=== PATIENT | female | born 1980 | race Caucasian/White ===

== ENCOUNTER 2019-10-07 01:33 | Inpatient (IN) | payer SELFPAY ==
[2019-10-07] VITALS (7 sets, daily range): BP systolic 103–143; BP diastolic 66–99; PULSE 80–99; RESP 14–20; TEMP 36.3–37.2; O2SAT 94–97; BMI 24.5
--- NOTE | 2019-10-07 01:42 | ED_ITS ---
HPI - Psych General: Chief Complaint: Psychiatric Symptoms Stated Complaint: SI Source: patient and EMS Mode of arrival: EMS Limitations: no limitations History of Present Illness: HPI Narrative: 37-year-old female states she has been having suicidal thoughts over the last day. She has no specific plan. States she has been very sad. Denies any worsening or improving factors. complaint: suicidal ideation Onset (ago): hour(s) Duration: constant History of same: Yes Relieving factors: none Exacerbating factors: none Associated psychiatric symptoms: depression Associated symptoms: Reports depression and suicidal ideation Treatments prior to arrival: none Review of Systems Const: Denies: fever or chills Eyes: Denies: change in vision ENMT: Denies: throat pain or mouth pain Card: Denies: chest pain Resp: Denies: shortness of breath GI: Denies: abdominal pain, nausea, vomiting or diarrhea : Denies: difficulty urinating Musc: Denies: back pain or joint pain Skin/Breast: Denies: rash Neuro: Denies: headache or behavioral changes Psych: Reports: depression and suicidal ideation Endo: Denies: excessive urination Riki/Lymph: Denies: easy bruising All/Imm: Denies: hives PFSH ED PFSH: Statuses (acute, chronic, etc) shown below reflect problem list status as previously entered and may not be historically accurate Social History (Updated 10/07/19 @ 01:45 by Barbara Colon MD) Smoking and tobacco status: never smoked Substance/Drug Use: never Physical Exam Const: COMMON NORMALS: no apparent distress, oriented x3 and healthy appearing HENMT: COMMON NORMALS: normocephalic and external nose normal HEAD & SCALP: normocephalic NOSE: external nose normal Eye: COMMON NORMALS: PERRL PUPIL: Yes PERRL Neck/C-Spine: COMMON NORMALS: full ROM and no lymphadenopathy Chest: COMMONS NORMALS: inspection of chest normal Resp: COMMON NORMALS: normal respiratory effort, no use of accessory muscles and clear to auscultation bilaterally AUSCULTATION: clear to auscultation bilaterally Cardio: COMMON NORMALS: regular rate and regular rhythm RATE: regular rate RHYTHM: regular rhythm GI: COMMON NORMALS: normal to inspection, nondistended, normoactive bowel sounds, soft to palpation, non-tender and no masses PALPATION: Yes soft Back/Pelvis: THORACIC SPINE/UPPER BACK: Yes normal to inspection Extremity: COMMON NORMALS: normal to inspection, full ROM and normal capillary refill Neuro: COMMON NORMALS: oriented x3 Psych: COMMON NORMALS: mental status grossly normal and cooperative Skin: COMMON NORMALS: no rashes or lesions noted GENERAL SKIN EXAM: no rashes or lesions noted MDM - Psych MDM Narrative: Medical decision making narrative: Patient presents here with suicidal ideation. Patient placed under a 96-hour hold I spoke to Dr. Pineda and will admit. Patient is medically cleared. Lab Data: Labs: Lab Results 10/07/19 10/07/19 10/07/19 Range/Units 01:49 01:49 01:56 WBC 9.0 (4.0-10.0) 10^3/ uL RBC 5.46 H (4.1-5.3) 10^6/u L Hgb 13.9 (11.5-15.3) g/dL Hct 43.6 (37.0-47.0) % MCV 79.9 L (81-99) fL MCH 25.5 L (28.0-34.0) pg MCHC 31.9 (30.0-36.0) g/dL RDW 15.1 (12.1-15.1) % Plt Count 273 (130-400) 10^3/c mm MPV 10.2 (7.4-10.4) fL Neut % (Auto) 54.4 % Lymph % (Auto) 33.1 % [place] % (Auto) 11.1 % Eos % (Auto) 0.9 % Baso % (Auto) 0.3 % Neut # (Auto) 4.9 (1.8-7.7) 10^3/u L Lymph # (Auto) 3.0 (0.8-4.8) 10^3/u L [place] # (Auto) 1.0 H (0.2-0.9) 10^3/u L Eos # (Auto) 0.1 (0.0-0.8) 10^3/u L Baso # (Auto) 0.0 (0.0-0.1) 10^3/u L Nucleated RBC % (a uto) 0 % Nucleated RBCs # 0.0 /100WBC Sodium (136-145) mmol/L Potassium (3.5-5.1) mmol/L Chloride (98-107) mmol/L Carbon Dioxide (22-29) mmol/L Anion Gap (5-19) BUN (6-20) mg/dL Creatinine (0.5-0.9) mg/dL GFR Calculation (90-130) mL/min Glucose (74-109) mg/dL Calcium (8.6-10.0) mg/Dl Total Bilirubin (0.15-1.2) mg/dL AST (0-32) U/L ALT (0-33) U/L Alkaline Phosphata se (35-105) IU/L Total Protein (6.6-8.7) g/dL Albumin (3.5-5.2) g/dL Globulin (1.3-4.6) g/dL HCG, Qual Negative (Negative) Salicylates (3-10) mg/dL Urine Opiates Scre en Negative (Negative) ng/mL Acetaminophen (10-30) ug/mL Ur Barbiturates Sc reen Negative (Negative) ng/mL Ur Phencyclidine S crn Negative (Negative) ng/mL Ur Amphetamines Sc reen Negative (Negative) ng/mL U Benzodiazepines Scrn Negative (Negative) ng/mL Urine Cocaine Scre en Negative (Negative) ng/mL U Marijuana (THC) Screen Negative (Negative) ng/mL Ethyl Alcohol (0-10) mg/dL 10/07/19 Range/Units 01:56 WBC (4.0-10.0) 10^3/ uL RBC (4.1-5.3) 10^6/u L Hgb (11.5-15.3) g/dL Hct (37.0-47.0) % MCV (81-99) fL MCH (28.0-34.0) pg MCHC (30.0-36.0) g/dL RDW (12.1-15.1) % Plt Count (130-400) 10^3/c mm MPV (7.4-10.4) fL Neut % (Auto) % Lymph % (Auto) % [place] % (Auto) % Eos % (Auto) % Baso % (Auto) % Neut # (Auto) (1.8-7.7) 10^3/u L Lymph # (Auto) (0.8-4.8) 10^3/u L [place] # (Auto) (0.2-0.9) 10^3/u L Eos # (Auto) (0.0-0.8) 10^3/u L Baso # (Auto) (0.0-0.1) 10^3/u L Nucleated RBC % (a uto) % Nucleated RBCs # /100WBC Sodium 138 (136-145) mmol/L Potassium 3.9 (3.5-5.1) mmol/L Chloride 103 (98-107) mmol/L Carbon Dioxide 22 (22-29) mmol/L Anion Gap 16.9 (5-19) BUN 4 L (6-20) mg/dL Creatinine 0.6 (0.5-0.9) mg/dL GFR Calculation 111.3 (90-130) mL/min Glucose 87 (74-109) mg/dL Calcium 9.7 (8.6-10.0) mg/Dl Total Bilirubin 0.3 (0.15-1.2) mg/dL AST 16 (0-32) U/L ALT 10 (0-33) U/L Alkaline Phosphata se 87 (35-105) IU/L Total Protein 7.4 (6.6-8.7) g/dL Albumin 5.2 (3.5-5.2) g/dL Globulin 2.2 (1.3-4.6) g/dL HCG, Qual (Negative) Salicylates < 0.3 L (3-10) mg/dL Urine Opiates Scre en (Negative) ng/mL Acetaminophen < 5.0 L (10-30) ug/mL Ur Barbiturates Sc reen (Negative) ng/mL Ur Phencyclidine S crn (Negative) ng/mL Ur Amphetamines Sc reen (Negative) ng/mL U Benzodiazepines Scrn (Negative) ng/mL Urine Cocaine Scre en (Negative) ng/mL U Marijuana (THC) Screen (Negative) ng/mL Ethyl Alcohol < 10 (0-10) mg/dL Discharge Plan Discharge Patient Disposition: Admitted As Inpatient Clinical Impression: Suicidal ideation Condition: Stable Referrals: Raquel Ghotra FNP [Primary Care Provider] - Kody Mccarty DO [Family Provider] - Coding Level of Care Code ED Intervention Specialist for Chg Fwd Exam Problem Focused
[2019-10-07 01:57] LABS: Add RBC Morph No
[2019-10-07 02:02] LABS: HCG Qualitative Urine. Negative (Negative)
[2019-10-07 02:04] LABS: Basophils % 0.3 %; Eosinophils # 0.1 10^3/uL (0.0-0.8); Eosinophils % 0.9 %; Hematocrit 43.6 % (37.0-47.0); Hemoglobin 13.9 g/dL (11.5-15.3); Lymphocytes % 33.1 %; Mean Corpuscular HGB Conc 31.9 g/dL (30.0-36.0); Mean Corpuscular Hemoglobin 25.5 pg (28.0-34.0); Mean Corpuscular Volume 79.9 fL (81-99); Mean Platelet Volume 10.2 fL (7.4-10.4); Monocytes % 11.1 %; Neutrophils # 4.9 10^3/uL (1.8-7.7); Neutrophils % 54.4 %; Nucleated Red Blood Cells % 0 %; Platelet Count 273 10^3/cmm (130-400); Red Blood Count 5.46 10^6/uL (4.1-5.3); Red Cell Distribution Width 15.1 % (12.1-15.1)
[2019-10-07 02:26] LABS: Alanine Aminotransferase 10 U/L (0-33); Albumin Level 5.2 g/dL (3.5-5.2); Alkaline Phosphatase 87 IU/L (35-105); Anion Gap 16.9 (5-19); Aspartate Amino Transferase 16 U/L (0-32); Blood Urea Nitrogen 4 mg/dL (6-20); Calcium 9.7 mg/Dl (8.6-10.0); Carbon Dioxide 22 mmol/L (22-29); Chloride 103 mmol/L (98-107); Globulin 2.2 g/dL (1.3-4.6); Glomerular Filtration Rate 111.3 mL/min (90-130); Potassium 3.9 mmol/L (3.5-5.1); Sodium 138 mmol/L (136-145); Total Bilirubin 0.3 mg/dL (0.15-1.2); Total Protein 7.4 g/dL (6.6-8.7)
[2019-10-07 02:34] LABS: Glucose 87 mg/dL (74-109)
[2019-10-07 02:39] LABS: Acetaminophen < 5.0 ug/mL (10-30); Alcohol Level < 10 mg/dL (0-10); Salicylate < 0.3 mg/dL (3-10)
[2019-10-07 02:39] LABS: Amphetamines Screen Urine Negative (Negative); Barbiturates Screen Urine Negative (Negative); Benzodiazepines Screen Urine Negative (Negative); Opiate Screen Urine Negative (Negative); PCP Screen Urine Negative (Negative); THC Screen Urine Negative (Negative)
--- NOTE | 2019-10-07 02:46 | PC.NURSE ---
Patient resting in bed with room cleared of all objects. Suicide precautions maintained, 1:1 sitter (nurse) at doorway.
[2019-10-07 02:53] LABS: Cocaine Screen Urine Negative (Negative)
--- NOTE | 2019-10-07 03:00 | PC.NURSE ---
Suicide precautions maintained, 1:1 sitter at doorway, no needs at this time.
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
[2019-10-07] MEDS: fluoxetine 20 mg Capsule PO (15:13)
== END 2019-10-07 16:00 | disposition home or self-care (01) | DRG 885 ==
LOC: ER 03:16 → NP 13:17
PROVIDERS: Admitting Provider Psychiatry & Neurology Psychiatry; Emergency Provider Emergency Medicine; Family Provider Internal Medicine; PCP Nurse Practitioner; Visit Provider Psychiatry & Neurology Psychiatry
DX: F25.9 Schizoaffective disorder, unspecified (principal); Z91.19 Patient's noncompliance with other medical treatment and regimen; F17.210 Nicotine dependence, cigarettes, uncomplicated
CPT/HCPCS: 36415; 80053; 80306; 80307; 81025; 85025; 99222; 99282; 99285

== ENCOUNTER 2019-10-07 16:01 | Inpatient (IN) | payer MEDICARE, SELFPAY ==
[2019-10-07 20:54] VITALS: BP 103/66; PULSE 85; RESP 19; TEMP 37.1; O2SAT 95
[2019-10-07] MEDS: divalproex ER 500 mg Tablet (24H) PO (21:17)
[2019-10-08 06:00] VITALS: BP 108/74; PULSE 89; RESP 16; TEMP 36.6; O2SAT 95
[2019-10-08] MEDS: fluoxetine 20 mg Capsule PO (09:00)
--- NOTE | 2019-10-08 11:18 | P.PN_ITS ---
Subjective NPU Subjective: Interval history: Fatemeh presents today immediately asking about discharge. We discussed the fact that she has barely gotten the medications restarted into her system and she is thinking about discharge. I assured her that we would not keep for any longer than was necessary but that he wanted to make sure that we did not have the same outcome he had last time of her leaving prior to really getting the medications adjusted and evaluated for stability. She appeared to hear and understand that she agreed to proceed as is documented in this note. Mental Status Exam MSE Comments: This is a well-nourished well-developed white female with adequate dress and grooming and limited eye contact. No abnormal movements except for psychomotor retardation. Cooperative with exam in no acute distress. Speech was decreased rate and volume mood described as better affect congruent, thought process organized. Thought content: Patient denied any suicidal or homicidal ideation, no delusions noted but some paranoia reported, she denied any auditory visual hallucinations. Attention and concentration were intact and memory appeared reliable but none were formally tested. She is alert and oriented x3. Insight and judgment are limited. Vitals/I&O/Wt Last Vital Signs Temp 98.4 F 10/08/19 19:53 Pulse 84 10/08/19 19:53 Resp 19 H 10/08/19 19:53 BP 111/78 10/08/19 19:53 Pulse Ox 96 10/08/19 19:53 Weight last 48 hrs Weight 58.967 kg A&P Assessment and plan (1) Schizo affective schizophrenia: Status: Acute Code(s): F25.9 - Schizoaffective disorder, unspecified Additional A&P Information Additional A&P Information: This is a 38 year old, white female, with a history of schizophrenia and substance abuse induced psychosis, who presents with provisional diagnosis of schizoaffective disorder, who presents reporting the desire to get her medications restarted and back on track. RECOMMENDATION AND PLAN: Continue current medication except number two. Encourage individual, group, and milieu therapy. Continue q 15 minute checks for safety. We will work with social work on possible discharge facilities. Involuntary Hold Information 96 Hour Hold: 96 Hour Involuntary Admission: Yes 96 Hour Hold Ending Date: 10/13/19 96 Hour Hold Ending Time: 02:56 Attestations NPU Medical Necessity Statement*: Inpatient hospitalization is medically necessary and the clinically appropriate intervention at this time. We will start medication and titrate to effect. Likely length of stay 2 to 4 days. Coding Level of Care Code Acute City Superintendent for g Fwd Diagnoses Schizo affective schizophrenia F25.9
[2019-10-08 14:00] VITALS: BP 116/73; PULSE 102; RESP 20; TEMP 37.1; O2SAT 95
[2019-10-08 19:53] VITALS: BP 111/78; PULSE 84; RESP 19; TEMP 36.9; O2SAT 96
[2019-10-08] MEDS: trazodone 50 mg Tablet PO (20:52)
[2019-10-08] MEDS: divalproex ER 500 mg Tablet (24H) PO (20:52)
--- NOTE | 2019-10-08 21:53 | PC.NURSE ---
Addendum entered by Damián Caceres LPN 10/08/19 21:54: PRN TRAZODONE FOLLOW-UP PT RESTING IN BED W/EYES CLOSED. RESPIRATIONS EVEN AND UNLABORED. WILL CONTINUE TO MONITOR. Original Note: PRN TRAZODONE PT REQUESTING SLEEP AID. TRAZODONE 50 MG PO GIVEN. WILL MONITOR FOR MEDICATION EFFECTIVENESS.
[2019-10-09 06:00] VITALS: BP 117/79; PULSE 89; RESP 19; TEMP 36.9; O2SAT 93
[2019-10-09] MEDS: fluoxetine 20 mg Capsule PO (08:24)
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
[2019-10-09] MEDS: acetaminophen 325 mg Tablet 650 MG PO (12:30)
[2019-10-09 13:02] VITALS: BP 114/69; PULSE 91; RESP 19; TEMP 37.1; O2SAT 95
--- NOTE | 2019-10-09 14:49 | P.PN_ITS ---
Subjective NPU Subjective: Interval history: Fatemeh presents today reporting that everything seems to be going well. She reports she is tolerating the medication and they were prescribing at the time that she likes to take it with the Risperdal twice a day, Prozac in the morning and the Depakote at night. She continues to seem to be very focused on discharge without much insight into how well she is or isn't. At this point she is denying any issues. Reports she is eating and sleeping well and basically more or less also no when she can be discharged. Mental Status Exam MSE Comments: This is a well-nourished well-developed white female with adequate dress and grooming and limited eye contact. No abnormal movements except for improving psychomotor retardation. Cooperative with exam in no acute distress. Speech was decreased rate and volume. Mood described as good affect congruent. Thought process organized. Thought content: Patient denied any suicidal or homicidal ideation, no delusions are reported but some paranoia reported, she denied any auditory or visual hallucinations. Attention and concentration were intact and memory appeared reliable but none were formally tested. She is alert and oriented x3. Insight and judgment are limited but improving. Vitals/I&O/Wt Last Vital Signs Temp 98.7 F 10/09/19 13:02 Pulse 91 10/09/19 13:02 Resp 19 H 10/09/19 13:02 BP 114/69 10/09/19 13:02 Pulse Ox 95 10/09/19 13:02 Weight last 48 hrs Weight 58.967 kg A&P Additional A&P Information Additional A&P Information: This is a 38 year old, white female, with a history of schizophrenia and substance induced psychosis, who presents with provisional diagnosis of schizoaffective disorder, who presents reporting the desire to get her medications restarted and back on track. RECOMMENDATION AND PLAN: Continue current medication Encourage individual, group, and milieu therapy. Continue q 15 minute checks for safety. Plan to discharge to mother's house. We should monitor for at least an additional day to make sure that she is stable on the medication before her discharge. Involuntary Hold Information 96 Hour Hold: 96 Hour Involuntary Admission: Yes 96 Hour Hold Ending Date: 10/13/19 96 Hour Hold Ending Time: 02:56 Attestations NPU Medical Necessity Statement*: Inpatient hospitalization is medically necessary and the clinically appropriate intervention at this time. We will monitor the medications and titrate to effect. We will likely monitor for another 24-48 hours and then discharge. Coding Level of Care Code Acute Transfer And Pumphouse Operator for Angela Hough
[2019-10-09 20:16] VITALS: BP 114/76; PULSE 74; RESP 17; TEMP 37.2; O2SAT 95
[2019-10-09] MEDS: divalproex ER 500 mg Tablet (24H) PO (22:43)
[2019-10-10 06:00] VITALS: BP 116/82; PULSE 65; RESP 18; TEMP 36.8; O2SAT 96
[2019-10-10] MEDS: fluoxetine 20 mg Capsule PO (09:27)
[2019-10-10 12:44] VITALS: BP 116/79; PULSE 97; RESP 18; TEMP 37.2; O2SAT 97
[2019-10-10] MEDS: acetaminophen 325 mg Tablet 650 MG PO (14:28)
--- NOTE | 2019-10-10 16:19 | PM.NPN ---
Subjective NPU Subjective: Interval history: Fatemeh presents today reporting that she did talk to her mom about the fact that she would be returning home soon and her mom said that that would be good. She reports that she is feeling better each day that she is on her medication and that she is optimistic that things will improve. She reports that she is fairly isolated in her life now. She reports that she has not made friends since she returned to [place] but she also reports she did really have friends in [place]. We discussed different things she can do to get more connected and less isolated including going to mormonism which is something she reports that she has done in the past but hasn't been doing. She reports that she is eating and sleeping fine. Mental Status Exam MSE Comments: This is a well-nourished well-developed white female with adequate dress and grooming and some improved limited eye contact. No abnormal movements except for improving psychomotor retardation. Cooperative with exam in no acute distress. Speech was decreased rate and volume. Mood described as pretty good, affect congruent. Thought process organized. Thought content: Patient denied any suicidal or homicidal ideation, no delusions are reported but some paranoia reported, she denied any auditory or visual hallucinations. Attention and concentration were intact and memory appeared reliable but none were formally tested. She is alert and oriented x3. Insight and judgment are limited but improving. Vitals/I&O/Wt Last Vital Signs Temp 99.0 F 10/10/19 12:44 Pulse 97 10/10/19 12:44 Resp 18 10/10/19 12:44 BP 116/79 10/10/19 12:44 Pulse Ox 97 10/10/19 12:44 A&P Additional A&P Information Additional A&P Information: Additional A&P Information: This is a 38 year old, white female, with a history of schizophrenia and substance induced psychosis, who presents with provisional diagnosis of schizoaffective disorder, who presents reporting the desire to get her medications restarted and back on track. RECOMMENDATION AND PLAN: Continue current medication Encourage individual, group, and milieu therapy. Continue q 15 minute checks for safety. Plan to discharge to mother's house. We should monitor for at least an additional day to make sure that she is stable on the medication before her discharge. Involuntary Hold Information 96 Hour Hold: 96 Hour Involuntary Admission: Yes 96 Hour Hold Ending Date: 10/13/19 96 Hour Hold Ending Time: 02:56 Attestations NPU Medical Necessity Statement*: Inpatient hospitalization is medically necessary and the clinically appropriate intervention at this time. We will monitor the medications and titrate to effect. We will likely discharge on Saturday. Coding Level of Care Code Acute Accounts Receivable Analyst for Angela Hough
[2019-10-10 19:42] VITALS: BP 128/83; PULSE 92; RESP 21; TEMP 36.9; O2SAT 97
[2019-10-10] MEDS: divalproex ER 500 mg Tablet (24H) PO (20:48)
[2019-10-11] MEDS: acetaminophen 325 mg Tablet 650 MG PO (02:29)
[2019-10-11 06:00] VITALS: BP 108/72; PULSE 70; RESP 17; TEMP 36.9; O2SAT 96
[2019-10-11] MEDS: fluoxetine 20 mg Capsule PO (09:05)
[2019-10-11 13:50] VITALS: BP 108/72; BP 121/80; PULSE 92; RESP 17; RESP 20; TEMP 36.9; TEMP 37.1; O2SAT 96; O2SAT 97
--- NOTE | 2019-10-11 16:33 | PM.NPN ---
Subjective NPU Subjective: Interval history: Fatemeh presents today continuing to be focused on discharge. Identified with her that we would likely be open to discharge tomorrow if she can have the improvement that she has had as well as if we are able to communicate with her mother and her support network is supportive of the plan. She has adjusted well to the addition of those medications and reports she is eating and sleeping well. Mental Status Exam MSE Comments: This is a well-nourished well-developed white female with adequate dress and grooming and some improved limited eye contact. No abnormal movements except for improving psychomotor retardation. Cooperative with exam in no acute distress. Speech was decreased rate and volume. Mood described as pretty good, affect congruent. Thought process organized. Thought content: Patient denied any suicidal or homicidal ideation, no delusions are reported but some paranoia reported, she denied any auditory or visual hallucinations. Attention and concentration were intact and memory appeared reliable but none were formally tested. She is alert and oriented x3. Insight and judgment are limited but improving. Vitals/I&O/Wt Last Vital Signs Temp 98.7 F 10/11/19 13:50 Pulse 92 10/11/19 13:50 Resp 20 H 10/11/19 13:50 BP 121/80 10/11/19 13:50 Pulse Ox 97 10/11/19 13:50 Weight last 48 hrs Weight 66.769 kg Weight 66.769 kg Weight 66.769 kg A&P Additional A&P Information Additional A&P Information: This is a 38 year old, white female, with a history of schizophrenia and substance induced psychosis, who presents with provisional diagnosis of schizoaffective disorder, who presents reporting the desire to get her medications restarted and back on track. RECOMMENDATION AND PLAN: Continue current medication Encourage individual, group, and milieu therapy. Continue q 15 minute checks for safety. . Involuntary Hold Information 96 Hour Hold: 96 Hour Involuntary Admission: Yes 96 Hour Hold Ending Date: 10/13/19 96 Hour Hold Ending Time: 02:56 Attestations NPU Medical Necessity Statement*: Inpatient hospitalization is medically necessary and the clinically appropriate intervention at this time. We will monitor the medications and titrate to effect. We will likely discharge tomorrow Coding Level of Care Code Acute Framing Inspector for Angela Hough
--- NOTE | 2019-10-11 20:44 | PC.NURSE ---
Patient refused vital signs
[2019-10-12 06:00] VITALS: BP 95/63; PULSE 80; RESP 19; TEMP 37; O2SAT 96
[2019-10-12] MEDS: fluoxetine 20 mg Capsule PO (09:08)
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
[2019-10-12 14:04] VITALS: BP 95/63; PULSE 80; RESP 19; TEMP 37; O2SAT 96
== END 2019-10-12 14:50 | disposition home or self-care (01) | DRG 885 ==
PROVIDERS: Admitting Provider Psychiatry & Neurology Psychiatry; Family Provider Internal Medicine; PCP Nurse Practitioner; Visit Provider Psychiatry & Neurology Psychiatry
DX: F20.9 Schizophrenia, unspecified (principal); F17.210 Nicotine dependence, cigarettes, uncomplicated; Z23 Encounter for immunization; Z87.820 Personal history of traumatic brain injury
CPT/HCPCS: 36415; 80053; 80306; 80307; 81025; 85025; 90686; 99282; 99285

== ENCOUNTER 2019-10-19 18:13 | Inpatient (IN) | payer MEDICARE, SELFPAY ==
[2019-10-19 17:59] VITALS: BP 131/92; PULSE 113; RESP 16; TEMP 37.4; O2SAT 95; BMI 21.9
--- NOTE | 2019-10-19 18:04 | ED_ITS ---
Entered by Kamla Martin, acting as scribe for Shawn Crum MD, [facility] [place] HPI - Psych General: Chief Complaint: Psychiatric Symptoms Stated Complaint: SI History of Present Illness: HPI Narrative: 38 yo f came to the er by ems for suicidal ideations. Onset was 30 min ago. Pt states that she does have a plan and that she wants to cut her neck with a knife. She called ems because she wants help. complaint: suicidal ideation Onset (ago): minute(s) Associated symptoms: Reports depression and suicidal ideation Review of Systems General: Reports: 10 or more systems reviewed and unremarkable except in HPI and below Const: Denies: fever Eyes: Denies: change in vision ENMT: Denies: throat pain Card: Denies: chest pain Resp: Denies: shortness of breath GI: Denies: abdominal pain : Denies: flank pain Musc: Denies: neck pain Skin/Breast: Denies: rash Neuro: Denies: headache Psych: Reports: depression and suicidal ideation Endo: Denies: excessive urination Riki/Lymph: Denies: easy bruising All/Imm: Denies: hives PFSH ED PFSH: Statuses (acute, chronic, etc) shown below reflect problem list status as previously entered and may not be historically accurate Social History Smoking and tobacco status: current every day smoker cigarettes Lives independently: No Household members: family Marital status: Single Highest education level completed: Don't Know service: No Current occupational status: disabled Current gender identity: Female Physical Exam Const: COMMON NORMALS: no apparent distress, average body habitus, oriented x3, no limitations, healthy appearing, alert and well nourished HENMT: COMMON NORMALS: normocephalic, head/scalp atraumatic, hearing grossly normal bilaterally, external ears normal, EAC's normal, TM's normal bilaterally, external nose normal, nasal mucous membranes and turbinates normal, moist oral mucous membranes, oropharynx normal, dentition normal and gingiva normal HEAD & SCALP: normocephalic and atraumatic NOSE: external nose normal and nasal mucous membranes and turbinates normal EXTERNAL EAR: Yes external ears normal EXTERNAL AUDITORY CANAL: EAC's normal TYMPANIC MEMBRANE: TM's normal bilaterally Eye: COMMON NORMALS: PERRL, EOMs intact bilaterally, conjunctivae normal, no scleral icterus, no papilledema, normal visual pena by confrontation and fundi normal bilaterally CONJUNCTIVA: Yes conjunctivae normal PUPIL: Yes PERRL DIRECT OPHTHALMOSCOPY: Yes no papilledema and Yes fundi normal bilaterally Neck/C-Spine: COMMON NORMALS: full ROM, supple, no meningeal signs, no JVD and no carotid bruits Chest: COMMONS NORMALS: inspection of chest normal and palpation of chest normal Resp: COMMON NORMALS: normal respiratory effort, no retractions, no use of accessory muscles, clear to auscultation bilaterally and percussion normal AUSCULTATION: clear to auscultation bilaterally PERCUSSION: percussion normal Cardio: COMMON NORMALS: no JVD, regular rate, regular rhythm, S1 normal heart sound, S2 normal heart sound, no gallops, no clicks, no murmurs, no rub and peripheral pulses 2+ throughout RATE: regular rate RHYTHM: regular rhythm HEART SOUNDS: S1 normal and S2 normal PERIPHERAL PULSES: pulses 2+ throughout GI: COMMON NORMALS: normal to inspection, nondistended, normoactive bowel sounds, soft to palpation, non-tender, no hepatosplenomegaly, no masses and no bruits PALPATION: Yes soft and Yes no hepatosplenomegaly : COMMON NORMALS: Yes no CVA tenderness BLADDER/KIDNEY EXAM: Yes no CVA tenderness Back/Pelvis: COMMON NORMALS: no CVA tenderness Extremity: COMMON NORMALS: normal to inspection, full ROM, normal capillary refill, no joint enlargement, no clubbing, cyanosis or edema, no calf tenderness and no pedal edema Neuro: COMMON NORMALS: oriented x3 SENSORIUM/ORIENTATION: Yes alert MENINGEAL SIGNS: Yes no meningeal signs Skin: COMMON NORMALS: no rashes or lesions noted, no wounds, skin turgor normal, no jaundice, no petechiae and no mottling GENERAL SKIN EXAM: no rashes or lesions noted and turgor normal MDM - Psych MDM Narrative: Medical decision making narrative: 38-year-old female patient who came into the emergency department with suicidal ideations. She initially informed me that she had a plan, however when she spoke with a psychiatrist she told him that she did not have a plan. She was recently admitted to inpatient psychiatry for similar symptoms. Discharged 1 week ago. She has no access to weapons and feels she is safe to be discharged home to follow-up with her outpatient therapy team. The psychiatrist therefore cleared her to be discharged home and she is being discharged home. Lab Data: Labs: Lab Results 10/19/19 10/19/19 10/19/19 Range/Units 18:08 18:08 18:08 WBC (4.0-10.0) 10^3/ uL RBC (4.1-5.3) 10^6/u L Hgb (11.5-15.3) g/dL Hct (37.0-47.0) % MCV (81-99) fL MCH (28.0-34.0) pg MCHC (30.0-36.0) g/dL RDW (12.1-15.1) % Plt Count (130-400) 10^3/c mm MPV (7.4-10.4) fL Neut % (Auto) % Lymph % (Auto) % Antelope % (Auto) % Eos % (Auto) % Baso % (Auto) % Neut # (Auto) (1.8-7.7) 10^3/u L Lymph # (Auto) (0.8-4.8) 10^3/u L Antelope # (Auto) (0.2-0.9) 10^3/u L Eos # (Auto) (0.0-0.8) 10^3/u L Baso # (Auto) (0.0-0.1) 10^3/u L Nucleated RBC % (a uto) % Nucleated RBCs # /100WBC Sodium (136-145) mmol/L Potassium (3.5-5.1) mmol/L Chloride (98-107) mmol/L Carbon Dioxide (22-29) mmol/L Anion Gap (5-19) BUN (6-20) mg/dL Creatinine (0.5-0.9) mg/dL GFR Calculation (90-130) mL/min Glucose (74-109) mg/dL Calcium (8.6-10.0) mg/Dl Total Bilirubin (0.15-1.2) mg/dL AST (0-32) U/L ALT (0-33) U/L Alkaline Phosphata se (35-105) IU/L Total Protein (6.6-8.7) g/dL Albumin (3.5-5.2) g/dL Globulin (1.3-4.6) g/dL TSH (0.27-4.20) uIU/ mL HCG, Qual Negative (Negative) Urine Color Colorless (Yellow) Urine Appearance Clear (CLEAR) Urine pH 8 H (5-7) Ur Specific Gravit y 1.010 (1.005-1.030) Urine Protein Neg (Negative) Urine Glucose (UA) Norm (Normal) Urine Ketones Negative (Negative) Urine Occult Blood Neg (Negative) Urine Nitrate Negative (Negative) Urine Bilirubin Neg (NEGATIVE) Prot Sulfosalicyli c Acd Negative Urine Urobilinogen Norm (Negative) mg/dL Ur Leukocyte Nikki ase Negative (Negative) Salicylates (3-10) mg/dL Urine Opiates Scre en Negative (Negative) ng/mL Acetaminophen (10-30) ug/mL Ur Barbiturates Sc reen Negative (Negative) ng/mL Ur Phencyclidine S crn Negative (Negative) ng/mL Ur Amphetamines Sc reen Negative (Negative) ng/mL U Benzodiazepines Scrn Negative (Negative) ng/mL Urine Cocaine Scre en Negative (Negative) ng/mL U Marijuana (THC) Screen Negative (Negative) ng/mL Ethyl Alcohol (0-10) mg/dL 10/19/19 10/19/19 Range/Units 18:38 18:38 WBC 7.0 (4.0-10.0) 10^3/ uL RBC 4.79 (4.1-5.3) 10^6/u L Hgb 12.5 (11.5-15.3) g/dL Hct 38.8 (37.0-47.0) % MCV 81.0 (81-99) fL MCH 26.1 L (28.0-34.0) pg MCHC 32.2 (30.0-36.0) g/dL RDW 15.5 H (12.1-15.1) % Plt Count 218 (130-400) 10^3/c mm MPV 11.1 H (7.4-10.4) fL Neut % (Auto) 71.4 % Lymph % (Auto) 15.1 % Antelope % (Auto) 12.7 % Eos % (Auto) 0.4 % Baso % (Auto) 0.3 % Neut # (Auto) 5.0 (1.8-7.7) 10^3/u L Lymph # (Auto) 1.1 (0.8-4.8) 10^3/u L Antelope # (Auto) 0.9 (0.2-0.9) 10^3/u L Eos # (Auto) 0.0 (0.0-0.8) 10^3/u L Baso # (Auto) 0.0 (0.0-0.1) 10^3/u L Nucleated RBC % (a uto) 0 % Nucleated RBCs # 0.0 /100WBC Sodium 137 (136-145) mmol/L Potassium 3.4 L (3.5-5.1) mmol/L Chloride 103 (98-107) mmol/L Carbon Dioxide 23 (22-29) mmol/L Anion Gap 14.4 (5-19) BUN 6 (6-20) mg/dL Creatinine 0.5 (0.5-0.9) mg/dL GFR Calculation 137.4 H (90-130) mL/min Glucose 96 (74-109) mg/dL Calcium 9.3 (8.6-10.0) mg/Dl Total Bilirubin 0.2 (0.15-1.2) mg/dL AST 14 (0-32) U/L ALT 9 (0-33) U/L Alkaline Phosphata se 74 (35-105) IU/L Total Protein 6.7 (6.6-8.7) g/dL Albumin 3.9 (3.5-5.2) g/dL Globulin 2.8 (1.3-4.6) g/dL TSH 0.66 (0.27-4.20) uIU/ mL HCG, Qual (Negative) Urine Color (Yellow) Urine Appearance (CLEAR) Urine pH (5-7) Ur Specific Gravit y (1.005-1.030) Urine Protein (Negative) Urine Glucose (UA) (Normal) Urine Ketones (Negative) Urine Occult Blood (Negative) Urine Nitrate (Negative) Urine Bilirubin (NEGATIVE) Prot Sulfosalicyli c Acd Urine Urobilinogen (Negative) mg/dL Ur Leukocyte Nikki ase (Negative) Salicylates < 0.3 L (3-10) mg/dL Urine Opiates Scre en (Negative) ng/mL Acetaminophen < 5.0 L (10-30) ug/mL Ur Barbiturates Sc reen (Negative) ng/mL Ur Phencyclidine S crn (Negative) ng/mL Ur Amphetamines Sc reen (Negative) ng/mL U Benzodiazepines Scrn (Negative) ng/mL Urine Cocaine Scre en (Negative) ng/mL U Marijuana (THC) Screen (Negative) ng/mL Ethyl Alcohol < 10 (0-10) mg/dL Discharge Plan Discharge Patient Disposition: Home, Self-Care Clinical Impression: Suicidal ideation, Schizo affective schizophrenia Condition: Stable Prescriptions: Continued divalproex 500 mg Tablet Extended Release 24 Hr 500 mg PO Q24H 30 Days Qty: 30 RF: 1 fluoxetine 20 mg Capsule 20 mg PO DAILY 30 Days Qty: 30 RF: 1 Risperdal 1 mg tablet 1 mg PO BID 30 Days Qty: 60 RF: 0 Discharge Orders: Discharge Order (Routine); Ordered 10/19/19 Ordered By: Shawn Crum Referrals: Raquel Ghotra FNP [Primary Care Provider] - 1-3 days Kody Mccarty DO [Family Provider] - Discharge Activity: Resume usual activity Activity Restrictions/Additional Instructions: Return for any new or worsening symptoms. Follow-up with your behavioral health team tomorrow. Continue your medications as prescribed by the psychiatry team. Coding Level of Care Code ED Marionette Performer for Chg Fwd Exam Problem Focused The documentation recorded by the Mario reddy Stephanie Lyn, accurately reflects the service I personally performed and the decisions made by , Shawn Crum MD, [facility] [place] Oct 19, 2019 18:13
[2019-10-19 18:27] LABS: Add Urine Microscopic? NO
[2019-10-19 18:38] LABS: Glucose Urine UA Norm (Normal); Ketones Urine Negative (Negative); Protein Urine Neg (Negative); Urine Appearance Clear (CLEAR); Urine Color Colorless (Yellow); pH Urine 8 (5-7)
[2019-10-19 18:39] LABS: Bilirubin Urine Neg (NEGATIVE); Blood Urine Neg (Negative); HCG Qualitative Urine. Negative (Negative); Leukocyte Esterase Urine Negative (Negative); Nitrate Urine Negative (Negative); Sulfosalicylic Acid Urine Negative; Urobilinogen Urine Norm (Negative)
[2019-10-19 18:53] LABS: Basophils % 0.3 %; Eosinophils % 0.4 %; Hematocrit 38.8 % (37.0-47.0); Hemoglobin 12.5 g/dL (11.5-15.3); Lymphocytes # 1.1 10^3/uL (0.8-4.8); Lymphocytes % 15.1 %; Mean Corpuscular HGB Conc 32.2 g/dL (30.0-36.0); Mean Corpuscular Hemoglobin 26.1 pg (28.0-34.0); Mean Platelet Volume 11.1 fL (7.4-10.4); Monocytes # 0.9 10^3/uL (0.2-0.9); Monocytes % 12.7 %; Neutrophils % 71.4 %; Nucleated Red Blood Cells % 0 %; Platelet Count 218 10^3/cmm (130-400); Red Blood Count 4.79 10^6/uL (4.1-5.3); Red Cell Distribution Width 15.5 % (12.1-15.1)
[2019-10-19 18:55] LABS: Amphetamines Screen Urine Negative (Negative); Barbiturates Screen Urine Negative (Negative); Benzodiazepines Screen Urine Negative (Negative); Cocaine Screen Urine Negative (Negative); Opiate Screen Urine Negative (Negative); PCP Screen Urine Negative (Negative); THC Screen Urine Negative (Negative)
--- NOTE | 2019-10-19 19:08 | PC.NURSE ---
REPORT RECEIVED FROM CORKY SHAHID AND CARE TRANSFERRED TO CORKY REYES
--- NOTE | 2019-10-19 19:10 | PC.NURSE ---
1:1 SITTER MAINTAINED AT DOORWAY, PATIENTS ROOM CLEAR OF ALL ITEMS, SUICIDE PRECAUTIONS ONGOING
[2019-10-19 19:14] LABS: Alanine Aminotransferase 9 U/L (0-33); Albumin Level 3.9 g/dL (3.5-5.2); Alkaline Phosphatase 74 IU/L (35-105); Anion Gap 14.4 (5-19); Aspartate Amino Transferase 14 U/L (0-32); Blood Urea Nitrogen 6 mg/dL (6-20); Calcium 9.3 mg/Dl (8.6-10.0); Carbon Dioxide 23 mmol/L (22-29); Chloride 103 mmol/L (98-107); Globulin 2.8 g/dL (1.3-4.6); Glomerular Filtration Rate 137.4 mL/min (90-130); Glucose 96 mg/dL (74-109); Potassium 3.4 mmol/L (3.5-5.1); Sodium 137 mmol/L (136-145); Thyroid Stimulating Hormone 0.66 uIU/mL (0.27-4.20); Total Bilirubin 0.2 mg/dL (0.15-1.2); Total Protein 6.7 g/dL (6.6-8.7)
[2019-10-19 19:15] LABS: Acetaminophen < 5.0 ug/mL (10-30); Alcohol Level < 10 mg/dL (0-10); Salicylate < 0.3 mg/dL (3-10)
--- NOTE | 2019-10-19 22:46 | PC.NURSE ---
PATIENT STATES SHE NO LONGER WANTS TO HARM HERSELF AND DOES NOT HAVE A PLAN TO DO SO. PATIENT IS CALM AND COOPERATIVE UPON DISCHARGE
--- NOTE | 2019-10-19 22:58 | PC.NURSE ---
ATTEMPTED TO DISCHARGE PATIENT, PATIENT STATED TO NURSE THAT SHE FELT SUICIDAL. HCP WAS NOTIFIED BY NURSE.
[2019-10-19 22:59] VITALS: BP 98/60; PULSE 86; PULSE 90; RESP 16; O2SAT 93
[2019-10-19 23:00] VITALS: BP 117/66; PULSE 88; PULSE 89; RESP 16; O2SAT 92; O2SAT 93
[2019-10-20 04:22] VITALS: BP 95/74; PULSE 84; RESP 16; O2SAT 90
[2019-10-20 05:04] VITALS: BP 128/88; PULSE 105; RESP 17; TEMP 37.1; O2SAT 94
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
[2019-10-20 13:56] VITALS: BP 125/88; PULSE 91; RESP 20; TEMP 37.1; O2SAT 97
[2019-10-20 14:19] VITALS: BP 125/88; PULSE 97; RESP 20; TEMP 37.1; O2SAT 97
== END 2019-10-20 14:54 | DRG 885 ==
LOC: ER 22:19 → NP 10-20 02:47
PROVIDERS: Family Medicine; Admitting Provider Psychiatry & Neurology Psychiatry; Emergency Provider Emergency Medicine; Family Provider Internal Medicine; PCP Nurse Practitioner; Visit Provider Psychiatry & Neurology Psychiatry
DX: F25.9 Schizoaffective disorder, unspecified (principal); R45.851 Suicidal ideations; F17.210 Nicotine dependence, cigarettes, uncomplicated; Z91.14 Patient's other noncompliance with medication regimen
CPT/HCPCS: 12345; 36415; 80053; 80307; 81003; 81025; 84443; 85025; 99284

== ENCOUNTER 2019-10-21 19:12 | Observation (INO) | payer MEDICARE, SELFPAY ==
[2019-10-21 19:13] VITALS: BP 149/86; PULSE 98; RESP 12; TEMP 36.6; O2SAT 94; BMI 26.5
--- NOTE | 2019-10-21 19:14 | ED_ITS ---
Entered by Cass Olivera, acting as scribe for Barbara Colon MD HPI - Psych General: Chief Complaint: Psychiatric Symptoms Stated Complaint: SI Time Seen by Provider: 10/21/19 19:13 Source: patient and EMS Mode of arrival: EMS Limitations: no limitations History of Present Illness: HPI Narrative: 37-year-old female states she has been having suicidal thoughts. Pt states she was at [facility] this evening when this started. Pt has been seen here several times for the same complaint, this year. Pt was just d/c from [facility]. Pt states she has a plan to cut her wrists. complaint: suicidal ideation Onset (ago): hour(s) Duration: constant History of same: Yes Relieving factors: none Exacerbating factors: none Associated psychiatric symptoms: depression, suicidal ideation and visual hallucinations (seeing the devil) Associated symptoms: Reports visual hallucinations and suicidal ideation Treatments prior to arrival: none If self harm: admits thoughts of self harm and has plan (cut her wrists) Review of Systems Const: Denies: fever or chills Eyes: Denies: change in vision ENMT: Denies: throat pain or mouth pain Card: Denies: chest pain Resp: Denies: shortness of breath GI: Denies: abdominal pain, nausea, vomiting or diarrhea : Denies: difficulty urinating Musc: Denies: back pain or joint pain Skin/Breast: Denies: rash Neuro: Denies: headache or behavioral changes Psych: Reports: visual hallucinations and suicidal ideation Endo: Denies: excessive urination Riki/Lymph: Denies: easy bruising All/Imm: Denies: hives PFSH ED PFSH: Statuses (acute, chronic, etc) shown below reflect problem list status as previously entered and may not be historically accurate Medical History (Updated 10/21/19 @ 21:59 by Barbara Colon MD) Substance abuse (Acute) Substance abuse (Acute) Social History Smoking and tobacco status: former smoker Lives independently: No Household members: family Marital status: Single Highest education level completed: Don't Know service: No Current occupational status: disabled Current gender identity: Female Female Reproductive History: Date of last menstrual period: 10/11/19 Physical Exam Const: COMMON NORMALS: no apparent distress and oriented x3 GENERAL APPEARANCE: cooperative HENMT: COMMON NORMALS: normocephalic and external nose normal HEAD & SCALP: normocephalic NOSE: external nose normal Eye: COMMON NORMALS: PERRL PUPIL: Yes PERRL Neck/C-Spine: COMMON NORMALS: full ROM and no lymphadenopathy Chest: COMMONS NORMALS: inspection of chest normal Resp: COMMON NORMALS: normal respiratory effort, no use of accessory muscles and clear to auscultation bilaterally AUSCULTATION: clear to auscultation bilaterally Cardio: COMMON NORMALS: regular rate and regular rhythm RATE: regular rate RHYTHM: regular rhythm GI: COMMON NORMALS: normal to inspection, nondistended, normoactive bowel sounds, soft to palpation, non-tender and no masses PALPATION: Yes soft Back/Pelvis: THORACIC SPINE/UPPER BACK: Yes normal to inspection Extremity: COMMON NORMALS: normal to inspection, full ROM and normal capillary refill Neuro: COMMON NORMALS: oriented x3 Psych: COMMON NORMALS: cooperative and denies homicidal ideation ATTITUDE: Yes calm THOUGHT CONTENT: Yes suicidality and Yes hallucination(s) Skin: COMMON NORMALS: no rashes or lesions noted GENERAL SKIN EXAM: no rashes or lesions noted MDM - Psych MDM Narrative: Medical decision making narrative: Patient presents here with suicidal ideations. Patient seen by Dr. Pineda and will admit for observation to the psychiatric unit. Lab Data: Labs: Lab Results 10/21/19 10/21/19 10/21/19 Range/Units 19:36 19:38 19:38 WBC 8.1 (4.0-10.0) 10^3/ uL RBC 4.86 (4.1-5.3) 10^6/u L Hgb 12.3 (11.5-15.3) g/dL Hct 38.2 (37.0-47.0) % MCV 78.6 L (81-99) fL MCH 25.3 L (28.0-34.0) pg MCHC 32.2 (30.0-36.0) g/dL RDW 14.9 (12.1-15.1) % Plt Count 288 (130-400) 10^3/c mm MPV 10.9 H (7.4-10.4) fL Neut % (Auto) 53.9 % Lymph % (Auto) 27.3 % [place] % (Auto) 16.5 % Eos % (Auto) 1.6 % Baso % (Auto) 0.5 % Neut # (Auto) 4.4 (1.8-7.7) 10^3/u L Lymph # (Auto) 2.2 (0.8-4.8) 10^3/u L [place] # (Auto) 1.3 H (0.2-0.9) 10^3/u L Eos # (Auto) 0.1 (0.0-0.8) 10^3/u L Baso # (Auto) 0.0 (0.0-0.1) 10^3/u L Nucleated RBC % (a uto) 0 % Nucleated RBCs # 0.0 /100WBC Sodium 142 (136-145) mmol/L Potassium 3.4 L (3.5-5.1) mmol/L Chloride 104 (98-107) mmol/L Carbon Dioxide 24 (22-29) mmol/L Anion Gap 17.4 (5-19) BUN 13 (6-20) mg/dL Creatinine 0.6 (0.5-0.9) mg/dL GFR Calculation 111.3 (90-130) mL/min Glucose 82 (74-109) mg/dL Calcium 9.4 (8.6-10.0) mg/Dl Total Bilirubin 0.2 (0.15-1.2) mg/dL AST 17 (0-32) U/L ALT 13 (0-33) U/L Alkaline Phosphata se 79 (35-105) IU/L Total Protein 7.9 (6.6-8.7) g/dL Albumin 4.2 (3.5-5.2) g/dL Globulin 3.7 (1.3-4.6) g/dL Salicylates < 0.3 L (3-10) mg/dL Urine Opiates Scre en Negative (Negative) ng/mL Acetaminophen < 5.0 L (10-30) ug/mL Ur Barbiturates Sc reen Negative (Negative) ng/mL Ur Phencyclidine S crn Negative (Negative) ng/mL Ur Amphetamines Sc reen Negative (Negative) ng/mL U Benzodiazepines Scrn Negative (Negative) ng/mL Urine Cocaine Scre en Negative (Negative) ng/mL U Marijuana (THC) Screen Negative (Negative) ng/mL Ethyl Alcohol < 10 (0-10) mg/dL Discharge Plan Discharge Patient Disposition: Placed in Observation Clinical Impression: Suicidal ideation Condition: Stable Referrals: Raquel Ghotra FNP [Primary Care Provider] - Kody Mccarty DO [Family Provider] - Coding Level of Care Code ED Certified Adapted Physical Educator for Chg Fwd Exam Problem Focused The documentation recorded by the Jarod reddy Ashley, accurately reflects the service I personally performed and the decisions made by me, Barbara Colon MD Oct 21, 2019 19:12
[2019-10-21 19:50] LABS: Basophils % 0.5 %; Eosinophils # 0.1 10^3/uL (0.0-0.8); Eosinophils % 1.6 %; Hematocrit 38.2 % (37.0-47.0); Hemoglobin 12.3 g/dL (11.5-15.3); Lymphocytes # 2.2 10^3/uL (0.8-4.8); Lymphocytes % 27.3 %; Mean Corpuscular HGB Conc 32.2 g/dL (30.0-36.0); Mean Corpuscular Hemoglobin 25.3 pg (28.0-34.0); Mean Corpuscular Volume 78.6 fL (81-99); Mean Platelet Volume 10.9 fL (7.4-10.4); Monocytes # 1.3 10^3/uL (0.2-0.9); Monocytes % 16.5 %; Neutrophils # 4.4 10^3/uL (1.8-7.7); Neutrophils % 53.9 %; Nucleated Red Blood Cells % 0 %; Platelet Count 288 10^3/cmm (130-400); Red Blood Count 4.86 10^6/uL (4.1-5.3); Red Cell Distribution Width 14.9 % (12.1-15.1); White Blood Count 8.1 10^3/uL (4.0-10.0)
[2019-10-21 19:59] LABS: Alanine Aminotransferase 13 U/L (0-33); Albumin Level 4.2 g/dL (3.5-5.2); Alkaline Phosphatase 79 IU/L (35-105); Anion Gap 17.4 (5-19); Aspartate Amino Transferase 17 U/L (0-32); Blood Urea Nitrogen 13 mg/dL (6-20); Calcium 9.4 mg/Dl (8.6-10.0); Carbon Dioxide 24 mmol/L (22-29); Chloride 104 mmol/L (98-107); Globulin 3.7 g/dL (1.3-4.6); Glomerular Filtration Rate 111.3 mL/min (90-130); Glucose 82 mg/dL (74-109); Potassium 3.4 mmol/L (3.5-5.1); Sodium 142 mmol/L (136-145); Total Bilirubin 0.2 mg/dL (0.15-1.2); Total Protein 7.9 g/dL (6.6-8.7)
[2019-10-21 20:04] LABS: Acetaminophen < 5.0 ug/mL (10-30); Alcohol Level < 10 mg/dL (0-10); Salicylate < 0.3 mg/dL (3-10)
[2019-10-21 20:19] LABS: Amphetamines Screen Urine Negative (Negative); Barbiturates Screen Urine Negative (Negative); Benzodiazepines Screen Urine Negative (Negative); Cocaine Screen Urine Negative (Negative); Opiate Screen Urine Negative (Negative); PCP Screen Urine Negative (Negative); THC Screen Urine Negative (Negative)
[2019-10-21] MEDS: haloperidol inj 5 mg/mL INJ 1 mL IM (21:43)
[2019-10-21] MEDS: LORazepam 2 mg/mL INJ 1 mL IM (21:44)
[2019-10-21 22:47] VITALS: BP 138/71; PULSE 72; RESP 16; TEMP 36.7; O2SAT 97
[2019-10-21 23:10] VITALS: BP 115/77; PULSE 88; RESP 18; TEMP 36.8; O2SAT 97
[2019-10-22 06:00] VITALS: BP 105/71; PULSE 84; RESP 19; TEMP 36.9; O2SAT 93
[2019-10-22 12:46] VITALS: BP 118/84; PULSE 101; TEMP 37.1
[2019-10-22] MEDS: divalproex ER 500 mg Tablet (24H) PO (18:08)
[2019-10-22] MEDS: risperiDONE 1 mg Tablet PO (18:08)
[2019-10-22 19:54] VITALS: BP 110/75; PULSE 78; RESP 16; TEMP 37; O2SAT 94
[2019-10-23 06:00] VITALS: BP 128/81; PULSE 93; RESP 17; O2SAT 95
--- NOTE | 2019-10-23 09:18 | PM.NHP ---
Providers/Chief Complaint Admitting Physician: Randall Pineda MD Primary Care Provider: Raquel Ghotra Chief Complaint: SI HPI NPU History of Present Illness Chief complaint: I got scared at [employer] and didn't know what to do so I called police. History of present illness: Fateemh Polanco Is a 38-year-old female who was admitted to the psychiatric unit on observational basis. She discharged from the unit earlier in the day. She walked [employer]. She became confused and frightened. She called police and told them she was having suicidal thoughts. She was brought to the emergency room. She refused to speak to Dr. Pineda who she had just seen earlier in the day. She was placed on the psychiatric unit on observational basis. Mental health history:Unchanged from her hospitalization on 10/12/2019 Social history:Unchanged from her hospitalization on 10/12/2019 Legal history:Unchanged from her hospitalization on 10/12/2019 Past medical history:Unchanged from her hospitalization on 10/12/2019 Mental Status Exam: Appearance: hygiene is fair; no gross neurological deficits., gait is unremarkable; AIMS=0 Speech: Speech is of normal rate and rhythm and easily understood. Thought processes: Thought processes are [place]. Judgment is adequate for safety. Associations: intact Psychotic processes: There is no indication of guarding or paranoia. There is no attention to the internal stimuli. Auditory and visual hallucinations are denied. Judgment: Insight is fair. Problem solving skills are adequate for safety. Orientation: The patient is oriented to person, place time and situation. Memory: no deficits noted in immediate, intermediate, or remote spheres. Attention: The patient is alert and interpersonally engaged. Language: Verbalizations are coherent. Fund of knowledge: Fund of knowledge is adequate. Affect/Mood: Affect is Sat with a Euthymic mood. Denied suicidal ideation Affective range appropriate. Psychosis: perception unimpaired except through cognitive distortion; reality testing intact. Diagnoses:adjustment disorder with disturbance of mood Assessment:Patient will be admitted to the psychiatric unit on an observational basis since it does not appear in fact that she has suicidal ideation with intent. She is frustrated and her problem-solving skills are overwhelmed. Treatment plan: Due to the psychiatric conditions and treatment listed in the Assessment and Plan - the patient requires continued hospitalization. Will provide a safe and therapeutic environment for patient.. Will continue inpatient treatment to allow for medication adjustment and monitoring. Will continue q15 min safety checks. Will continue current medications and monitor for medication side effects. Monitor patient's mood, sleep, appetite, and behavior closely. Encourage patient to participate in individual and group therapeutic sessions on the [place]. Estimated length of stay 5 days The expected benefits and potential side effects of patient's psychiatric medications were discussed with the patient. The patient understands and consents to treatment.CRITERIA FOR DISCHARGE: stable on medications and no longer an im Meds NPU Allergies Allergy/AdvReac Type Severity Reaction Status Date / Time codeine Allergy Mild ALGY-Rash Verified 10/21/19 19:17 Penicillins Allergy Mild ALGY-Hives Verified 10/21/19 19:17 risperidone [From Risperdal] Allergy ADR-Headach Verified 10/21/19 19:17 e PFSH NPU PFSH: Statuses (acute, chronic, etc) shown below reflect problem list status as previously entered and may not be historically accurate Medical History (Updated 10/21/19 @ 21:59 by Barbara Colon MD) Substance abuse (Acute) Substance abuse (Acute) Social History Smoking and tobacco status: former smoker Lives independently: No Household members: family Marital status: Single Highest education level completed: Don't Know service: No Current occupational status: disabled Current gender identity: Female Vitals/I&O/Wt Last Vital Signs Temp 98.6 F 10/22/19 19:54 Pulse 93 10/23/19 06:00 Resp 17 10/23/19 06:00 BP 128/81 10/23/19 06:00 Pulse Ox 95 10/23/19 06:00 Weight last 48 hrs Weight 65.771 kg Data NPU : 10/21/19 19:38 10/21/19 19:38 Involuntary Hold Information 96 Hour Hold: 96 Hour Involuntary Admission: No 96 Hour Hold Ending Date: 10/13/19 96 Hour Hold Ending Time: 02:56 Attestations NPU Medical Necessity Statement*: Patient will remain in the hospital overnight and then discharge planning can be facilitated morning. Coding Level of Care Code Acute Paper Bag Machine Operator for Angela Hough
--- NOTE | 2019-10-23 09:24 | P.DS_ITS ---
Diagnoses at Discharge Other Information Additional DC diagnoses/information: Adjustment disorder with disturbance of mood Reason for Visit Reason for Visit: Reason For Visit: SI Brief History: Chief complaint: I got scared at [facility] and didn't know what to do so I called police. History of present illness: Fatemeh Polanco Is a 38-year-old female who was admitted to the psychiatric unit on observational basis. She discharged from the unit earlier in the day. She walked [employer]. She became confused and frightened. She called police and told them she was having suicidal thoughts. She was brought to the emergency room. She refused to speak to Dr. Pineda who she had just seen earlier in the day. She was placed on the psychiatric unit on observational basis. Hospital Course Discharge Summary Patient was observed overnight. Her suicidal ideation resolved once she established a reasonable plan on discharge. Involuntary Hold Information 96 Hour Hold: 96 Hour Involuntary Admission: No 96 Hour Hold Ending Date: 10/13/19 96 Hour Hold Ending Time: 02:56 Mental Status Exam MSE Comments: Mental Status Exam: Appearance: hygiene is fair; no gross neurological deficits., gait is unremarkable; AIMS=0 Speech: Speech is of normal rate and rhythm and easily understood. Thought processes: Thought processes are [place]. Judgment is adequate for safety. Associations: intact Psychotic processes: There is no indication of guarding or paranoia. There is no attention to the internal stimuli. Auditory and visual hallucinations are denied. Judgment: Insight is fair. Problem solving skills are adequate for safety. Orientation: The patient is oriented to person, place time and situation. Memory: no deficits noted in immediate, intermediate, or remote spheres. Attention: The patient is alert and interpersonally engaged. Language: Verbalizations are coherent. Fund of knowledge: Fund of knowledge is adequate. Affect/Mood: Affect is Sat with a Euthymic mood. Denied suicidal ideation Affective range appropriate. Psychosis: perception unimpaired except through cognitive distortion; reality testing intact. Discharge Data Procedures Performed: I AM UNABLE TO FIGURE OUT HOW TO INCLUDE THIS INTO THE DISCHARGE PLAN BUT SHE WAS TRANSPORTED DIRECTLY TO THE [facility] FOR INTAKE FOLLOWING DISCHARGE. Vitals: Last Vital Signs Temp 98.6 F 10/22/19 19:54 Pulse 93 10/23/19 06:00 Resp 17 10/23/19 06:00 BP 128/81 10/23/19 06:00 Pulse Ox 95 01/17/20 06:00 Discharge Plan Discharge Patient Disposition: Home, Self-Care Condition: Stable Prescriptions: No Action divalproex 500 mg Tablet Extended Release 24 Hr 500 mg PO Q24H 30 Days Qty: 30 RF: 1 fluoxetine 20 mg Capsule 20 mg PO DAILY 30 Days Qty: 30 RF: 1 risperidone [Risperdal] 1 mg tablet 1 mg PO BID 30 Days Qty: 60 RF: 0 Discharge Orders: Discharge Order (Routine); Ordered 10/23/19 Ordered By: Jose Clement Referrals: Raquel Ghotra FNP [Primary Care Provider] - Kody Mccarty DO [Family Provider] - Discharge Attestations NPU Time Spent in Discharge Care*: less than 30 min Status at Discharge: Cognitive status at discharge: mildly impaired cognition , Behavioral status at discharge: independent in ADL's , Coding Level of Care Code Acute Application Engineer for Angela Hough
[2019-10-23] MEDS: fluoxetine 20 mg Capsule PO (09:32)
[2019-10-23] MEDS: risperiDONE 1 mg Tablet PO (09:32)
[2019-10-23 09:51] VITALS: BP 105/71; PULSE 84; RESP 19; TEMP 36.9; O2SAT 93
--- NOTE | 2019-10-23 11:30 | PC.SOCIAL ---
[facility] called for Crista Shook after intake done at [facility]. [facility] hotline called that patient has no medicaid yet and possibly no check coming in despite having 3 hospitalizations within the last couple of months. the need for guardianship was suggested but investigation needed first on what exactly is going on at home with resources.
== END 2019-10-23 10:05 | disposition home or self-care (01) ==
LOC: ER 21:59 → NP 10-22 07:53
PROVIDERS: Admitting Provider Psychiatry & Neurology Psychiatry; Emergency Provider Emergency Medicine; Family Provider Internal Medicine; PCP Nurse Practitioner; Visit Provider Psychiatry & Neurology Psychiatry
DX: F43.25 Adjustment disorder with mixed disturbance of emotions and conduct (principal); R45.851 Suicidal ideations
CPT/HCPCS: 12345; 36415; 80053; 80307; 85025; 96372; 99284; 99285; G0378; J1630; J2060

== ENCOUNTER 2019-11-02 00:16 | Inpatient (IN) | payer MEDICARE, SELFPAY ==
[2019-11-02 00:28] VITALS: BP 132/99; PULSE 88; RESP 16; TEMP 36.8; O2SAT 96; BMI 25.9
--- NOTE | 2019-11-02 00:32 | ED_ITS ---
Entered by Kamla Martin, acting as scribe for Shayan Marie DO HPI - Psych General: Chief Complaint: Psychiatric Symptoms Stated Complaint: SI Time Seen by Provider: 11/02/19 00:32 Source: patient Mode of arrival: EMS Limitations: no limitations History of Present Illness: HPI Narrative: 39 yo f came to the er by [facility] for si. Onset was today. Pt states that she has a headache. Pt states that she is also si and that she wants to cut herself. Pt states that she has had those thoughts about an hour and she has attempted in the past. Pt states that she is also hearing voices. Pt said that she just feels mentally ill and that she just wants to kill herself. complaint: suicidal ideation Onset (ago): hour(s) (1 hour ago) Duration: constant Relieving factors: none Exacerbating factors: none Associated psychiatric symptoms: suicidal ideation Associated symptoms: Reports visual hallucinations If self harm: admits thoughts of self harm and has plan Details of plan: Pt states that she wants to cut herself. Review of Systems Const: Denies: fever or chills Eyes: Denies: change in vision or blurry vision ENMT: Denies: painful swallowing, swelling of lips/tongue, bleeding gums, dental pain, Change in hearing, nose bleeds, post nasal drip or facial/sinus pain Card: Denies: chest pain, palpitations, irregular heart rhythm, edema or swelling of feet/ankles Resp: Denies: shortness of breath, productive cough, non-productive cough or wheezing GI: Denies: abdominal pain, nausea, vomiting, rectal pain, blood in stool or black tarry stool : Denies: painful urination, urinary frequency, urinary urgency or blood in urine Musc: Denies: neck pain, back pain, redness or joint warmth Skin/Breast: Denies: rash, itching or redness Neuro: Reports: headache; Denies: dizziness, vertigo, confusion or seizure-like activity Psych: Reports: visual hallucinations PFSH ED PFSH: Statuses (acute, chronic, etc) shown below reflect problem list status as previously entered and may not be historically accurate Medical History (Updated 10/21/19 @ 21:59 by Barbara Colon MD) Substance abuse (Acute) Substance abuse (Acute) Social History Smoking and tobacco status: former smoker Lives independently: No Household members: family Marital status: Single Highest education level completed: Don't Know service: No Current occupational status: disabled Current gender identity: Female Female Reproductive History: Date of last menstrual period: 10/11/19 Physical Exam Const: GENERAL APPEARANCE: well developed ORIENTATION/CONSCIOUSNESS: Yes oriented to person, Yes oriented to place and Yes oriented to time HENMT: COMMON NORMALS: normocephalic, external ears normal and external nose normal HEAD & SCALP: normocephalic; no scalp tenderness FACE & SINUS: normal facial exam NOSE: external nose normal and no nasal discharge EXTERNAL EAR: Yes external ears normal Eye: COMMON NORMALS: PERRL, EOMs intact bilaterally and conjunctivae normal EYELID: eyelids normal CONJUNCTIVA: Yes conjunctivae normal PUPIL: Yes PERRL Neck/C-Spine: COMMON NORMALS: full ROM GENERAL: No tracheal deviation CERVICAL SPINE: Yes normal cervical lordosis and No cervical spine tenderness Chest: COMMONS NORMALS: inspection of chest normal CHEST: No tenderness Resp: COMMON NORMALS: clear to auscultation bilaterally EFFORT & INSPECTION: No tachypneic, No respiratory distress, No retractions, No uses accessory muscles and No tracheal deviation AUSCULTATION: clear to auscultation bilaterally, no rhonchi, no wheezes and lung sounds not diminished Cardio: COMMON NORMALS: regular rate and regular rhythm RATE: regular rate RHYTHM: regular rhythm HEART SOUNDS: no murmurs PERIPHERAL PULSES: radial pulses present GI: INSPECTION: No abdominal distension AUSCULTATION: No hyperactive bowel sounds and No hypoactive bowel sounds PALPATION: No guarding and No rigid PERCUSSION: no dullness to percussion and no tympanic to percussion Neuro: SENSORIUM/ORIENTATION: Yes oriented to person, Yes oriented to place and Yes oriented to time Psych: MOOD & AFFECT: Yes apathetic THOUGHT CONTENT: Yes suicidality and Yes hallucination(s) MEMORY/COGNITION: Yes memory grossly intact INSIGHT: questionable JUDGEMENT: questionable Skin: COMMON NORMALS: no rashes or lesions noted GENERAL SKIN EXAM: no rashes or lesions noted MDM - Psych Lab Data: Labs: Lab Results 11/02/19 11/02/19 11/02/19 Range/Units 00:49 00:49 00:50 WBC 11.0 H (4.0-10.0) 10^3/ uL RBC 5.17 (4.1-5.3) 10^6/u L Hgb 13.3 (11.5-15.3) g/dL Hct 42.9 (37.0-47.0) % MCV 83.0 (81-99) fL MCH 25.7 L (28.0-34.0) pg MCHC 31.0 (30.0-36.0) g/dL RDW 14.9 (12.1-15.1) % Plt Count 275 (130-400) 10^3/c mm MPV 11.2 H (7.4-10.4) fL Neut % (Auto) 68.4 % Lymph % (Auto) 23.9 % [place] % (Auto) 6.2 % Eos % (Auto) 0.7 % Baso % (Auto) 0.5 % Neut # (Auto) 7.6 (1.8-7.7) 10^3/u L Lymph # (Auto) 2.6 (0.8-4.8) 10^3/u L [place] # (Auto) 0.7 (0.2-0.9) 10^3/u L Eos # (Auto) 0.1 (0.0-0.8) 10^3/u L Baso # (Auto) 0.1 (0.0-0.1) 10^3/u L Nucleated RBC % (a uto) 0 % Nucleated RBCs # 0.0 /100WBC Sodium 137 (136-145) mmol/L Potassium 4.1 (3.5-5.1) mmol/L Chloride 100 (98-107) mmol/L Carbon Dioxide 27 (22-29) mmol/L Anion Gap 14.1 (5-19) BUN 12 (6-20) mg/dL Creatinine 0.7 (0.5-0.9) mg/dL GFR Calculation 92.7 (90-130) mL/min Glucose 88 (74-109) mg/dL Calcium 9.3 (8.5-10.5) mg/dL Total Bilirubin 0.2 (0.15-1.2) mg/dL AST 15 (0-32) U/L ALT 9 (0-33) U/L Alkaline Phosphata se 73 (35-105) IU/L Total Protein 8.0 (6.6-8.7) g/dL Albumin 4.5 (3.5-5.2) g/dL Globulin 3.5 (1.3-4.6) g/dL TSH 0.50 (0.27-4.20) uIU/ mL HCG, Qual Negative (Negative) Urine Color (Yellow) Urine Appearance (CLEAR) Urine pH (5-7) Ur Specific Gravit y (1.005-1.030) Urine Protein (Negative) Urine Glucose (UA) (Normal) Urine Ketones (Negative) Urine Occult Blood (Negative) Urine Nitrate (Negative) Urine Bilirubin (NEGATIVE) Urine Urobilinogen (Negative) mg/dL Ur Leukocyte Nikki ase (Negative) Salicylates < 0.3 L (3-10) mg/dL Urine Opiates Scre en (Negative) ng/mL Acetaminophen < 5.0 L (10-30) ug/mL Ur Barbiturates Sc reen (Negative) ng/mL Valproic Acid 48.2 L (50-100) mcg/mL Ur Phencyclidine S crn (Negative) ng/mL Ur Amphetamines Sc reen (Negative) ng/mL U Benzodiazepines Scrn (Negative) ng/mL Urine Cocaine Scre en (Negative) ng/mL U Marijuana (THC) Screen (Negative) ng/mL Ethyl Alcohol < 10 (0-10) mg/dL 11/02/19 11/02/19 Range/Units 00:50 00:50 WBC (4.0-10.0) 10^3/ uL RBC (4.1-5.3) 10^6/u L Hgb (11.5-15.3) g/dL Hct (37.0-47.0) % MCV (81-99) fL MCH (28.0-34.0) pg MCHC (30.0-36.0) g/dL RDW (12.1-15.1) % Plt Count (130-400) 10^3/c mm MPV (7.4-10.4) fL Neut % (Auto) % Lymph % (Auto) % [place] % (Auto) % Eos % (Auto) % Baso % (Auto) % Neut # (Auto) (1.8-7.7) 10^3/u L Lymph # (Auto) (0.8-4.8) 10^3/u L [place] # (Auto) (0.2-0.9) 10^3/u L Eos # (Auto) (0.0-0.8) 10^3/u L Baso # (Auto) (0.0-0.1) 10^3/u L Nucleated RBC % (a uto) % Nucleated RBCs # /100WBC Sodium (136-145) mmol/L Potassium (3.5-5.1) mmol/L Chloride (98-107) mmol/L Carbon Dioxide (22-29) mmol/L Anion Gap (5-19) BUN (6-20) mg/dL Creatinine (0.5-0.9) mg/dL GFR Calculation (90-130) mL/min Glucose (74-109) mg/dL Calcium (8.5-10.5) mg/dL Total Bilirubin (0.15-1.2) mg/dL AST (0-32) U/L ALT (0-33) U/L Alkaline Phosphata se (35-105) IU/L Total Protein (6.6-8.7) g/dL Albumin (3.5-5.2) g/dL Globulin (1.3-4.6) g/dL TSH (0.27-4.20) uIU/ mL HCG, Qual (Negative) Urine Color Yellow (Yellow) Urine Appearance Clear (CLEAR) Urine pH 6 (5-7) Ur Specific Gravit y 1.015 (1.005-1.030) Urine Protein Neg (Negative) Urine Glucose (UA) Norm (Normal) Urine Ketones Negative (Negative) Urine Occult Blood Neg (Negative) Urine Nitrate Negative (Negative) Urine Bilirubin Neg (NEGATIVE) Urine Urobilinogen Norm (Negative) mg/dL Ur Leukocyte Nikki ase Negative (Negative) Salicylates (3-10) mg/dL Urine Opiates Scre en Negative (Negative) ng/mL Acetaminophen (10-30) ug/mL Ur Barbiturates Sc reen Negative (Negative) ng/mL Valproic Acid (50-100) mcg/mL Ur Phencyclidine S crn Negative (Negative) ng/mL Ur Amphetamines Sc reen Negative (Negative) ng/mL U Benzodiazepines Scrn Negative (Negative) ng/mL Urine Cocaine Scre en Negative (Negative) ng/mL U Marijuana (THC) Screen Negative (Negative) ng/mL Ethyl Alcohol (0-10) mg/dL Discharge Plan Discharge Admit Provider: Randall Pineda Discharge Date/Time: 11/02/19 03:25 Coding Level of Care Code ED Water Softener Installer for Chg Fwemilie The documentation recorded by the Mario reddy Stephanie Lyn, accurately reflects the service I personally performed and the decisions made by Frank locke Jeremy John, Nov 02, 2019 00:16
--- NOTE | 2019-11-02 00:43 | PC.NURSE ---
Introduced self to patient and initiated vital signs. Pt is A&O x 4 and will not follow directions unless repeatedly asked. Pt states that the reason for the ER visit today is due to SI. Pt also complaining of headache Reassured patient of needs and will continue to monitor. Awaiting provider at bedside.
--- NOTE | 2019-11-02 00:44 | PC.NURSE ---
Patient placed in room, removed all cords and devices. Pt belongings placed in file cabinet. Pt placed in blue scrubs.
[2019-11-02 00:55] LABS: Basophils # 0.1 10^3/uL (0.0-0.1); Basophils % 0.5 %; Eosinophils # 0.1 10^3/uL (0.0-0.8); Eosinophils % 0.7 %; Hematocrit 42.9 % (37.0-47.0); Hemoglobin 13.3 g/dL (11.5-15.3); Lymphocytes # 2.6 10^3/uL (0.8-4.8); Lymphocytes % 23.9 %; Mean Corpuscular Hemoglobin 25.7 pg (28.0-34.0); Mean Platelet Volume 11.2 fL (7.4-10.4); Monocytes # 0.7 10^3/uL (0.2-0.9); Monocytes % 6.2 %; Neutrophils # 7.6 10^3/uL (1.8-7.7); Neutrophils % 68.4 %; Nucleated Red Blood Cells % 0 %; Platelet Count 275 10^3/cmm (130-400); Red Blood Count 5.17 10^6/uL (4.1-5.3); Red Cell Distribution Width 14.9 % (12.1-15.1)
[2019-11-02 01:11] LABS: Add Urine Microscopic? NO
[2019-11-02] MEDS: acetaminophen 500 mg Tablet 1000 MG PO (01:13)
[2019-11-02 01:18] LABS: Alanine Aminotransferase 9 U/L (0-33); Albumin Level 4.5 g/dL (3.5-5.2); Alkaline Phosphatase 73 IU/L (35-105); Anion Gap 14.1 (5-19); Aspartate Amino Transferase 15 U/L (0-32); Blood Urea Nitrogen 12 mg/dL (6-20); Calcium 9.3 mg/dL (8.5-10.5); Carbon Dioxide 27 mmol/L (22-29); Chloride 100 mmol/L (98-107); Globulin 3.5 g/dL (1.3-4.6); Glomerular Filtration Rate 92.7 mL/min (90-130); Glucose 88 mg/dL (74-109); Potassium 4.1 mmol/L (3.5-5.1); Sodium 137 mmol/L (136-145); Total Bilirubin 0.2 mg/dL (0.15-1.2)
[2019-11-02 01:20] LABS: Bilirubin Urine Neg (NEGATIVE); Blood Urine Neg (Negative); Glucose Urine UA Norm (Normal); HCG Qualitative Urine. Negative (Negative); Ketones Urine Negative (Negative); Leukocyte Esterase Urine Negative (Negative); Nitrate Urine Negative (Negative); Protein Urine Neg (Negative); Specific Gravity, Urine 1.015 (1.005-1.030); Urine Appearance Clear (CLEAR); Urine Color Yellow (Yellow); Urobilinogen Urine Norm (Negative); pH Urine 6 (5-7)
[2019-11-02 01:20] LABS: Acetaminophen < 5.0 ug/mL (10-30); Alcohol Level < 10 mg/dL (0-10); Salicylate < 0.3 mg/dL (3-10)
[2019-11-02 01:38] LABS: Amphetamines Screen Urine Negative (Negative); Barbiturates Screen Urine Negative (Negative); Benzodiazepines Screen Urine Negative (Negative); Cocaine Screen Urine Negative (Negative); Opiate Screen Urine Negative (Negative); PCP Screen Urine Negative (Negative); THC Screen Urine Negative (Negative)
[2019-11-02 02:34] LABS: Valproic Acid Level 48.2 mcg/mL (50-100)
[2019-11-02 03:36] VITALS: BP 113/82; PULSE 87; RESP 17; TEMP 36.6
[2019-11-02 06:00] VITALS: BP 115/79; PULSE 74; RESP 17; TEMP 36.6; O2SAT 94
[2019-11-02 13:28] VITALS: BP 102/66; PULSE 73; RESP 18; TEMP 36.9; O2SAT 94
--- NOTE | 2019-11-02 14:17 | PM.NHP ---
Providers/Chief Complaint Admitting Physician: Rahul Kay M.D. Primary Care Provider: JADE Mccord Chief Complaint: SI HPI NPU History of Present Illness Fatemeh Polanco is a 39 year old female who has been in and out of our inpatient unit she is obviously afflicted with psychotic ambivalence she seems very frightened and everyday situations she feels like the risperidone, upon which she had been placed the last time she was here, gave her headache and nausea. She would like to have her medications changed but did not consider making an appointment at the outpatient clinic, where she is registered as a patient. Review of Systems General: Reports: 10 or more systems reviewed and unremarkable except in HPI and below and other Narrative: Const Denies: fever or chills Eyes Denies: change in vision or blurry vision ENMT Denies: painful swallowing, swelling of lips/tongue, bleeding gums, dental pain, Change in hearing, nose bleeds, post nasal drip or facial/sinus pain Card Denies: chest pain, palpitations, irregular heart rhythm, edema or swelling of feet/ankles Resp Denies: shortness of breath, productive cough, non-productive cough or wheezing GI Denies: abdominal pain, nausea, vomiting, rectal pain, blood in stool or black tarry stool Denies: painful urination, urinary frequency, urinary urgency or blood in urine Musc Denies: neck pain, back pain, redness or joint warmth Skin/Breast Denies: rash, itching or redness Neuro Reports: headache; Denies: dizziness, vertigo, confusion or seizure-like activity Psych Reports: visual hallucinations Meds NPU Allergies Allergy/AdvReac Type Severity Reaction Status Date / Time codeine Allergy Mild ALGY-Rash Verified 10/21/19 19:17 Penicillins Allergy Mild ALGY-Hives Verified 10/21/19 19:17 risperidone [From Risperdal] Allergy ADR-Headach Verified 10/21/19 19:17 e PFSH NPU PFSH: Statuses (acute, chronic, etc) shown below reflect problem list status as previously entered and may not be historically accurate Medical History Substance abuse (Acute) Substance abuse (Acute) Social History Smoking and tobacco status: former smoker Lives independently: No Household members: family Marital status: Single Highest education level completed: Don't Know service: No Current occupational status: disabled Current gender identity: Female Supplemental [facility] Information: The patient denies any family history of psychiatric disorder. She says that she has had depression since she was 13 and has been repeatedly hospitalized here. The patient's family, past and social history have not changed since she was here a few days ago. Mental Status Exam MSE Comments: The patient presents younger than her stated age. She is clean, neat and well groomed. Mood is anxious and affect is tense and guarded. Thought processes, however, are under greater than free of any racing, blocking or looseness of association. Speech is very soft, almost childlike, but not dysarthric, pressured or a prosodic. Cognitive functions same somewhat limited, simple social situations easily overwhelm her, although this may be simple social phobia arising from her previously diagnosed schizoaffective disorder. Insight and judgment are definitely limited. Although she called the police and said she was suicidal, she denies any suicidal or homicidal ideation plan or intent at the moment. Vitals/I&O/Wt Last Vital Signs Temp 98.4 F 11/02/19 13:28 Pulse 73 11/02/19 13:28 Resp 18 11/02/19 13:28 BP 102/66 11/02/19 13:28 Pulse Ox 94 11/02/19 13:28 Weight last 48 hrs Weight 142 lb Physical Exam Narrative: EXAM NARRATIVE: The patient appeared thin but adequately nourished and normally developed. Vital signs as documented. Head exam is unremarkable. No scleral icterus or corneal arcus noted. Neck is without jugular venous distension, thyromegaly, or carotid bruits. Lungs are clear to auscultation and percussion. Heart normal sinus rhythm, no murmurs. Abdomen bland. Extremities no limitation of motion, no lower extremity edema. Neurological cranial nerves II to XII intact. No cerebellar, sensory or motor deficit noted. Mental status as above. Data NPU : 11/02/19 00:49 11/02/19 00:49 A&P Assessment and plan (1) Suicidal ideation: I think this is less of a problem with pharmacotherapy than it is with the patient's ability to feel safe in her home. She said her brother and his partner want to move her out of her mother's house, which frightened her. She plans to stay with her mom until she passes away. Until then, she had intended to take care of her. Status: Acute Code(s): R45.851 - Suicidal ideations (2) Neurocognitive disorder: Status: Acute Code(s): R41.9 - Unspecified symptoms and signs involving cognitive functions and awareness (3) Schizo affective schizophrenia: We will see whether Latuda, lowered Depakote ER and Prozac are helpful. The patient remembers that this combination had been helpful Status: Acute Code(s): F25.9 - Schizoaffective disorder, unspecified Involuntary Hold Information 96 Hour Hold: 96 Hour Involuntary Admission: No 96 Hour Hold Ending Date: 10/13/19 96 Hour Hold Ending Time: 02:56 Attestations NPU Medical Necessity Statement*: This patient yoyos in and out of the hospital. She is clearly not stable and feels unsafe at home. I anticipate 3 to 4 additional midnights hospitalization Time Spent in Patient Care: Greater than 35 minutes (>than 50% of time spent in counselling and/or direct pt care on unit). 80 minutes spent in patient care Coding Level of Care Code Acute Educational Therapy Teacher for Chg Fwd Diagnoses Suicidal ideation R45.851 Neurocognitive disorder R41.9 Schizo affective schizophrenia F25.9
[2019-11-02 19:43] VITALS: BP 119/87; PULSE 90; RESP 18; TEMP 37; O2SAT 96
[2019-11-02] MEDS: divalproex ER 250 mg Tablet (24H) PO (20:56)
[2019-11-03 06:00] VITALS: BP 124/84; PULSE 75; RESP 17; TEMP 36.8; O2SAT 94
[2019-11-03] MEDS: ARIPiprazole 10 mg Tablet 20 MG PO (08:53)
[2019-11-03] MEDS: fluoxetine 20 mg Capsule PO (08:53)
--- NOTE | 2019-11-03 12:52 | P.PN_ITS ---
Subjective NPU Subjective: Interval history: The patient seems in better spirits today. She says she is doing better. She is now on fluoxetine and aripiprazole, each 20 mg p.o. daily, and divalproex sodium 250 mg p.o. nightly. She denies complications and believes she can function better. We will give it another day and, if the improvement continues, I will get her home tomorrow. Mental Status Exam MSE Comments: The patient is alert and oriented to person, place, time, and situation. Hygiene is disheveled. Sensorium is spotty but he actually understands what we tell him and what's going on around him. The patient maintains appropriate eye contact, is cooperative and relates well to me. Be havior shows no psychomotor agitation. Mood is calm and euthymic. Affect is rather blunted. Thought processes are limited but organized and they are free of racing, blocking or looseness of association. Speech is of normal rate and volume, without dysarthria, aprosody or pressure. There is no inordinate latency of response. The patient denies auditory or visual hallucinations or delusions. The patient denies suicidal or homicidal ideation, plan or intent. He exhibits no delete assaultive behavior this morning and seems not to have any recollection of the chaos he engendered over the last 2 to 3 days. Memory is intact for remote events. Fund of knowledge is adequate given vocabulary. I nsight and judgment were deemed to be good given the recognition of problems and desire for treatment. Vitals/I&O/Wt Last Vital Signs Temp 98.2 F 11/03/19 06:00 Pulse 75 11/03/19 06:00 Resp 17 11/03/19 06:00 BP 124/84 11/03/19 06:00 Pulse Ox 94 11/03/19 06:00 Weight last 48 hrs Weight 142 lb Physical Exam Narrative: EXAM NARRATIVE: The patient appeared thin but adequately nourished and normally developed. Vital signs as documented. Head exam is unremarkable. No scleral icterus or corneal arcus noted. Neck is without jugular venous distension, thyromegaly, or carotid bruits. Lungs are clear to auscultation and percussion. Heart normal sinus rhythm, no murmurs. Abdomen bland. Extremities no limitation of motion, no lower extremity edema. Neurological cranial nerves II to XII intact. No cerebellar, sensory or motor deficit noted. Mental status as above. Data NPU : 11/02/19 00:49 11/02/19 00:49 A&P Assessment and plan (1) Suicidal ideation: Status: Acute Code(s): R45.851 - Suicidal ideations (2) Schizo affective schizophrenia: Status: Acute Code(s): F25.9 - Schizoaffective disorder, unspecified Involuntary Hold Information 96 Hour Hold: 96 Hour Involuntary Admission: No 96 Hour Hold Ending Date: 10/13/19 96 Hour Hold Ending Time: 02:56 Attestations NPU Medical Necessity Statement*: The patient is stabilizing rapidly. I anticipate possible discharge tomorrow. Time Spent in Patient Care: Greater than 35 minutes (>than 50% of time spent in counselling and/or direct pt care on unit) . Coding Level of Care Code Acute Tobacco Sweeper for Angela Hough Diagnoses Suicidal ideation R45.851 Schizo affective schizophrenia F25.9
[2019-11-03 14:00] VITALS: BP 117/84; PULSE 99; RESP 18; TEMP 36.4; O2SAT 96
[2019-11-03] MEDS: nicotine 2 mg Gum BUCCAL (14:59)
[2019-11-03 16:30] VITALS: BP 117/84; PULSE 99; RESP 18; TEMP 36.4; O2SAT 96
[2019-11-03 16:35] VITALS: BP 117/84; PULSE 99; RESP 18; TEMP 36.4; O2SAT 96
== END 2019-11-03 16:52 | disposition home or self-care (01) | DRG 885 ==
LOC: ER 00:39 → NP 21:13
PROVIDERS: Admitting Provider Psychiatry & Neurology Psychiatry; Emergency Provider Emergency Medicine; Family Provider Internal Medicine; PCP Nurse Practitioner
DX: F25.9 Schizoaffective disorder, unspecified (principal); R45.851 Suicidal ideations; Z87.891 Personal history of nicotine dependence; R41.9 Unspecified symptoms and signs involving cognitive functions and awareness
CPT/HCPCS: 12345; 36415; 80053; 80164; 80307; 81003; 81025; 84443; 85025; 99284

== ENCOUNTER 2019-11-16 04:13 | Emergency (ER) | payer MEDICARE, SELFPAY ==
--- NOTE | 2019-11-16 04:17 | ED_ITS ---
Entered by Kamla Martin, acting as scribe for Shayan Marie DO Nov 16, 2019 04:13 HPI - Psych General: Chief Complaint: Psychiatric Symptoms Stated Complaint: mhe Time Seen by Provider: 11/16/19 04:18 Source: patient Mode of arrival: EMS Limitations: no limitations History of Present Illness: HPI Narrative: 39 yo f came to the er by [facility] for mental health evaluation. Onset was tonight.. Pt states that she is out of her medication. Pt states that she has a headache, productive cough and just doesn't feel good overall. Pt states that she has been out of her meds for about 5 days. MD complaint: other (out of meds) Onset (ago): day(s) (last night) Duration: constant History of same: No Relieving factors: none Exacerbating factors: none Associated psychiatric symptoms: none Associated symptoms: Reports no associated symptoms and depression; Deny auditory hallucinations, visual hallucinations, homicidal ideation or suicidal ideation Review of Systems General: Reports: other (negative unless marked) Const: Denies: fever, chills or body aches Eyes: Denies: change in vision ENMT: Denies: painful swallowing Card: Denies: chest pain, palpitations or edema Resp: Reports: productive cough; Denies: shortness of breath or wheezing GI: Denies: abdominal pain or vomiting : Denies: difficulty urinating or painful urination Neuro: Reports: headache Psych: Reports: anxiety and depression; Denies: visual hallucinations, auditory hallucinations, suicidal ideation or homicidal ideation PFSH ED PFSH: Statuses (acute, chronic, etc) shown below reflect problem list status as previously entered and may not be historically accurate Social History Smoking and tobacco status: current every day smoker cigarettes Lives independently: No Household members: family Marital status: Single Highest education level completed: Don't Know service: No Current occupational status: disabled Current gender identity: Female Female Reproductive History: Date of last menstrual period: 10/11/19 Physical Exam Const: GENERAL APPEARANCE: well developed ORIENTATION/CONSCIOUSNESS: Yes oriented to person, Yes oriented to place and Yes oriented to time HENMT: COMMON NORMALS: normocephalic, external ears normal and external nose normal HEAD & SCALP: normocephalic FACE & SINUS: normal facial exam NOSE: external nose normal and no nasal discharge EXTERNAL EAR: Yes external ears normal Eye: COMMON NORMALS: PERRL, EOMs intact bilaterally and conjunctivae normal EYELID: eyelids normal CONJUNCTIVA: Yes conjunctivae normal PUPIL: Yes PERRL Neck/C-Spine: GENERAL: No tracheal deviation Chest: COMMONS NORMALS: inspection of chest normal CHEST: No tenderness Resp: COMMON NORMALS: clear to auscultation bilaterally EFFORT & INSPECTION: No tachypneic, No respiratory distress, No retractions, No uses accessory muscles and No tracheal deviation AUSCULTATION: clear to auscultation bilaterally, no rhonchi, no wheezes and lung sounds not diminished Cardio: COMMON NORMALS: regular rate and regular rhythm RATE: regular rate RHYTHM: regular rhythm HEART SOUNDS: no murmurs PERIPHERAL PULSES: radial pulses present GI: INSPECTION: No abdominal distension AUSCULTATION: No hyperactive bowel sounds and No hypoactive bowel sounds PALPATION: No guarding and No rigid PERCUSSION: no dullness to percussion and no tympanic to percussion Neuro: SENSORIUM/ORIENTATION: Yes oriented to person, Yes oriented to place an d Yes oriented to time Psych: COMMON NORMALS: thought process normal, speech normal, denies homicidal ideation and denies suicidal ideation APPEARANCE: Yes grossly normal ATTITUDE: Yes calm and Yes engaged ACTIVITY/MOTOR BEHAVIOR: Yes appropriate eye contact SPEECH: Yes normal speech THOUGHT PROCESS: normal thought process ATTENTION/CONCENTRATION: Yes attention grossly intact INSIGHT: f air JUDGEMENT: fair Skin: COMMON NORMALS: no rashes or lesions noted GENERAL SKIN EXAM: no r ashes or lesions noted MDM - Psych MDM Narrative: Medical decision making narrative: Fatemeh is not suicidal or homicidal. She is afebrile. Her lungs are clear. She is out of her medicine. We have given her for the day. I have written prescriptions for her to fill at the pharmacy down the street as she will be discharged in the morning. Discharge Plan Discharge Patient Disposition: Home, Self-Care Clinical Impression: Schizo affective schizophrenia Condition: Stable Prescriptions: New aripiprazole 10 mg Tablet 20 mg PO DAILY 30 Days Qty: 60 RF: 0 Depakote ER 250 mg tablet extended release 24 hr 250 mg PO DAILY Qty: 30 RF: 0 fluoxetine 20 mg capsule 20 mg PO DAILY Qty: 30 RF: 0 Discontinued fluoxetine 20 mg Capsule 20 mg PO DAILY 30 Days Qty: 30 RF: 1 aripiprazole 10 mg Tablet 20 mg PO DAILY Qty: 30 RF: 1 divalproex [Depakote ER] 250 mg Tablet Extended Release 24 Hr 250 mg PO BEDTIME Qty: 30 RF: 1 Discharge Orders: Discharge Order (Routine); Ordered 11/16/19 Ordered By: Shayan Marie Referrals: Raquel Ghotra FNP [Primary Care Provider] - Kody Mccarty DO [Family Provider] - Discharge Diet: Usual diet Discharge Activity: Resume usual activity Patient Instructions: Schizoaffective Disorder (ED) Activity Restrictions/Additional Instructions: Return to the emergency department for thoughts or wishes to harm your self or others Coding Level of Care Code ED Decorating Machine Tender for Angela Hough The documentation recorded by the Mario reddy Stephanie Lyn, accurately reflects the service I personally performed and the decisions made by Frank locke Jeremy John, DO Nov 16, 2019 04:13
[2019-11-16 04:20] VITALS: BP 120/80; PULSE 94; RESP 16; TEMP 36.7; O2SAT 94; BMI 24.7
[2019-11-16] MEDS: divalproex ER 250 mg Tablet (24H) PO (06:03)
[2019-11-16] MEDS: fluoxetine 20 mg Capsule PO (06:03)
[2019-11-16] MEDS: ARIPiprazole 10 mg Tablet 20 MG PO (06:03)
[2019-11-16 07:57] VITALS: BP 122/86; PULSE 68; RESP 16; O2SAT 97
== END 2019-11-16 07:58 | disposition home or self-care (01) ==
PROVIDERS: Emergency Provider Emergency Medicine; Family Provider Internal Medicine; PCP Nurse Practitioner
DX: F25.9 Schizoaffective disorder, unspecified (principal); F17.210 Nicotine dependence, cigarettes, uncomplicated
CPT/HCPCS: 99284

== ENCOUNTER 2019-12-08 13:01 | Emergency (ER) | payer MEDICARE, SELFPAY ==
[2019-12-08 13:04] VITALS: BP 119/85; PULSE 93; RESP 14; TEMP 36.9; O2SAT 98; BMI 24.7
--- NOTE | 2019-12-08 13:14 | PC.NURSE ---
PHYSICAL ASSESSMENT Chief Complaint: Auditory hallucinations Hx: Patient lives with her mother who normally administers her medications. She has not been home to administers the patient?s medications due to a recent illness. The patient reports she has not been compliant with the medication regimen for several days now. She report auditory hallucinations ( voices ) She denies HI/SI GENERAL / NEURO / PSYCH: Alert and oriented x 4 CARLA COMA SCORE: 15 HEENT: No facial asymmetry noted. Mucous membranes are pink. RESPIRATORY: Denies complaints CVS: Capillary refill less than 2 seconds. Pulses within normal limits. GI / : Abdomen soft and nontender and normal bowel sounds. SKIN: Skin intact. Skin is warm and dry. Normal skin turgor. -
--- NOTE | 2019-12-08 13:20 | ED_ITS ---
Entered by Juliano Goodwin LPN, acting as scribe for Segundo Morrow DO HPI - Psych General: Chief Complaint: Psychiatric Symptoms Stated Complaint: HALLUCINATIONS, OFF PSYCH MEDS Time Seen by Provider: 12/08/19 13:04 Source: patient Mode of arrival: EMS Limitations: no limitations History of Present Illness: HPI Narrative: 39 yo female presents reporting her mother has been in the hospital for 3-4 days and she usually takes care of pt's meds. Pt reports she has been off her Depakote and Prozac for 2 days, states she is out of it. She also states she needs her Resperidal refilled. EMS reports this afternoon pt walked to a NH near her home and asked for help, EMS was called and brought her to ER. Pt denies any suicidal or homicidal thoughts, stat es she just needs refills on her medicine. Associated symptoms: Deny homicidal ideation or suicidal ideation Review of Systems General: Reports: 10 or more systems reviewed and unremarkable except in HPI and below Psych: Denies: suicidal ideation or homicidal ideation [facility] ED PFSH: Medical History Substance abuse Substance abuse Social History Smoking and tobacco status: current every day smoker cigarettes Lives independently: No Household members: family Marital status: Single Highest education level completed: Don't Know service: No Current occupational status: disabled Current gender identity: Female Female Reproductive History: Date of last menstrual period: 10/11/19 Physical Exam Const: COMMON NORMALS: no apparent distress, average body habitus, oriented x3, no limitations, healthy appearing, alert and well nourished HENMT: COMMON NORMALS: normocephalic, head/scalp atraumatic, hearing grossly normal bilaterally, external ears normal, EAC's normal, TM's normal bilaterally, external nose normal, nasal mucous membranes and turbinates normal, moist oral mucous membranes, oropharynx normal, dentition normal and gingiva normal HEAD & SCALP: normocephalic and atraumatic NOSE: external nose normal and nasal mucous membranes and turbinates normal EXTERNAL EAR: Yes external ears normal EXTERNAL AUDITORY CANAL: EAC's normal TYMPANIC MEMBRANE: TM's normal bilaterally Eye: COMMON NORMALS: PERRL, EOMs intact bilaterally, conjunctivae normal, no scleral icterus, no papilledema, normal visual pena by confrontation and fundi normal bilaterally CONJUNCTIVA: Yes conjunctivae normal PUPIL: Yes PERRL DIRECT OPHTHALMOSCOPY: Yes no papilledema and Yes fundi normal bilaterally Neck/C-Spine: COMMON NORMALS: full ROM, no lymphadenopathy, supple, no meningeal signs, no JVD, thyroid normal and no carotid bruits THYROID: thyroid normal Chest: COMMONS NORMALS: inspection of chest normal and palpation of chest normal Resp: COMMON NORMALS: normal respiratory effort, no retractions, no use of accessory muscles, clear to auscultation bilaterally and percussion normal AUSCULTATION: clear to auscultation bilaterally PERCUSSION: percussion normal Cardio: COMMON NORMALS: no JVD, regular rate, regular rhythm, S1 normal heart sound, S2 normal heart sound, no gallops, no clicks, no murmurs, no rub and peripheral pulses 2+ throughout RATE: regular rate RHYTHM: regular rhythm HEART SOUNDS: S1 normal and S2 normal PERIPHERAL PULSES: pulses 2+ throughout GI: COMMON NORMALS: normal to inspection, nondistended, normoactive bowel sounds, soft to palpation, non-tender, no hepatosplenomegaly, no masses and no bruits PALPATION: Yes soft and Yes no hepatosplenomegaly : COMMON NORMALS: Yes no CVA tenderness and Yes external appearance normal BLADDER/KIDNEY EXAM: Yes no CVA tenderness Back/Pelvis: COMMON NORMALS: no CVA tenderness, thoracic and lumbar spine normal to inspection, no thoracic nor lumbar tenderness, thoraco-lumbar ROM normal and straight leg raise negative bilaterally Extremity: COMMON NORMALS: normal to inspection, full ROM, normal capillary refill, no joint enlargement, no clubbing, cyanosis or edema, no calf tenderness and no pedal edema Neuro: COMMON NORMALS: oriented x3 SENSORIUM/ORIENTATION: Yes alert MENINGEAL SIGNS: Yes no meningeal signs Skin: COMMON NORMALS: no rashes or lesions noted, no wounds, skin turgor normal, no jaundice, no petechiae and no mottling GENERAL SKIN EXAM: no rashes or lesions noted and turgor normal Discharge Plan Discharge Patient Disposition: Home, Self-Care Clinical Impression: Encounter for medication refill Depression Qualifiers: Depression Type: unspecified Qualified Code(s): F32.9 - Major depressive disorder, single episode, unspecified Condition: Stable Prescriptions: New Depakote 250 mg tablet,delayed release (DR/EC) 250 mg PO .HS Qty: 10 RF: 0 Prozac 40 mg capsule 40 mg PO DAILY Qty: 10 RF: 0 Risperdal 2 mg tablet 2 mg PO DAILY Qty: 10 RF: 0 No Action aripiprazole 10 mg Tablet 20 mg PO DAILY 30 Days Qty: 60 RF: 0 Depakote ER 250 mg tablet extended release 24 hr 250 mg PO DAILY Qty: 30 RF: 0 fluoxetine 20 mg capsule 20 mg PO DAILY Qty: 30 RF: 0 Discharge Orders: Discharge Order (Routine); Ordered 12/08/19 Ordered By: Segundo Morrow Referrals: Raquel Ghotra FNP [Nurse Practitioner] - Kody Mccarty DO [Primary Care Provider] - Coding Level of Care Code ED Hot Oiler for Chg Fwd Exam Comprehensive The documentation recorded by the Buddy reddy Dani Elizabeth, LPN, accurately reflects the service I personally performed and the decisions made by Odalys locke Donald P, DO
== END 2019-12-08 13:49 | disposition home or self-care (01) ==
PROVIDERS: Emergency Provider Family Medicine; Family Provider Internal Medicine; PCP Internal Medicine
DX: Z76.0 Encounter for issue of repeat prescription (principal); F32.9 Major depressive disorder, single episode, unspecified; F17.210 Nicotine dependence, cigarettes, uncomplicated
CPT/HCPCS: 99281; 99282

== ENCOUNTER 2019-12-10 04:42 | Emergency (ER) | payer MEDICARE, SELFPAY ==
--- NOTE | 2019-12-10 04:43 | ED_ITS ---
Entered by Cass Olivera, acting as scribe for Barbara Colon MD HPI - Psych General: Chief Complaint: Psychiatric Symptoms Stated Complaint: SI Time Seen by Provider: 12/10/19 04:43 Source: patient and EMS Mode of arrival: EMS History of Present Illness: HPI Narrative: 39 y/o female presents to the ED with complaint of SI, per EMS. Upon exam, pt states she got a ride [facility] last night and did not have a ride home. Pt lives in [place] and states she has not had her medications since yesterday afternoon. She denies suicidal ideations to ER provider and simply states she just wants her medications ( Depakote, Risperdal, Prozac) so she can go home. complaint: other (Wants psych meds) Onset (ago): hour(s) History of same: Yes Associated symptoms: Deny homicidal ideation or suicidal ideation Review of Systems Const: Denies: fever, chills, body aches or change in appetite Eyes: Denies: blurry vision or eye discomfort ENMT: Denies: throat pain or dental pain Card: Denies: chest pain Resp: Denies: shortness of breath GI: Denies: abdominal pain, nausea, vomiting or diarrhea : Denies: painful urination Musc: Denies: neck pain or back pain Skin/Breast: Denies: rash Neuro: Denies: headache Psych: Denies: suicidal ideation or homicidal ideation Riki/Lymph: Denies: easy bruising All/Imm: Denies: hives PFS ED PFSH: Social History Smoking and tobacco status: current every day smoker cigarettes Lives independently: No Household members: family Marital status: Single Highest education level completed: Don't Know service: No Current occupational status: disabled Current gender identity: Female Female Reproductive History: Date of last menstrual period: 10/11/19 Physical Exam Const: COMMON NORMALS: no apparent distress, oriented x3 and alert ORIENTATION/CONSCIOUSNESS: Yes awake HENMT: COMMON NORMALS: normocephalic and head/scalp atraumatic HEAD & SCALP: normocephalic and atraumatic Eye: COMMON NORMALS: PERRL and EOMs intact bilaterally PUPIL: Yes PERRL Neck/C-Spine: COMMON NORMALS: full ROM and supple Chest: COMMONS NORMALS: inspection of chest normal and palpation of chest normal Resp: COMMON NORMALS: normal respiratory effort, no retractions, no use of accessory muscles and clear to auscultation bilaterally AUSCULTATION: clear to auscultation bilaterally Cardio: COMMON NORMALS: regular rate, regular rhythm and no murmurs RATE: regular rate RHYTHM: regular rhythm GI: COMMON NORMALS: normal to inspection, nondistended, normoactive bowel sounds, soft to palpation, non-tender and no masses PALPATION: Yes soft Extremity: COMMON NORMALS: normal to inspection and full ROM Neuro: COMMON NORMALS: oriented x3, moves all extremities and no focal motor deficits SENSORIUM/ORIENTATION: Yes alert Psych: COMMON NORMALS: mental status grossly normal and cooperative ATTITUDE: Yes calm Skin: COMMON NORMALS: no rashes or lesions noted and no wounds GENERAL SKIN EXAM: no rashes or lesions noted MDM - Psych MDM Narrative: Medical decision making narrative: Patient presents here with depression states she is away from home and not be able to go home until tomorrow needs her medicines. She states she needs her Prozac and her Depakote. She denies any suicidal or homicidal ideations. Patient has been appropriate here. Patient is stable for discharge and given meds here. Discharge Plan Discharge Patient Disposition: Home, Self-Care Clinical Impression: Schizo affective schizophrenia, Encounter for medication refill Condition: Stable Prescriptions: No Action aripiprazole 10 mg Tablet 20 mg PO DAILY 30 Days Qty: 60 RF: 0 Depakote ER 250 mg tablet extended release 24 hr 250 mg PO DAILY Qty: 30 RF: 0 fluoxetine 20 mg capsule 20 mg PO DAILY Qty: 30 RF: 0 Depakote 250 mg tablet,delayed release (DR/EC) 250 mg PO .HS Qty: 10 RF: 0 Prozac 40 mg capsule 40 mg PO DAILY Qty: 10 RF: 0 Risperdal 2 mg tablet 2 mg PO DAILY Qty: 10 RF: 0 Discharge Orders: Discharge Order (Routine); Ordered 12/10/19 Ordered By: Barbara Colon Referrals: Kody Mccarty DO [Primary Care Provider] - 4-7 days Discharge Diet: Advance as tolerated Discharge Activity: Resume usual activity Patient Instructions: Schizoaffective Disorder (ED) Discharge Date/Time: 12/10/19 05:13 Coding Level of Care Code ED Pollution Control Engineer for Chg Fwd Exam Comprehensive The documentation recorded by the Jarod reddy Ashley, accurately reflects the service I personally performed and the decisions made by , Barbara Colon MD Dec 10, 2019 04:42
[2019-12-10 04:52] VITALS: BP 126/78; PULSE 92; RESP 16; TEMP 36.9; O2SAT 96; BMI 23.8
[2019-12-10] MEDS: divalproex ER 500 mg Tablet (24H) PO (05:07)
[2019-12-10] MEDS: fluoxetine 20 mg Capsule 60 MG PO (05:07)
--- NOTE | 2019-12-10 05:08 | PC.NURSE ---
pt denies SI/HI, states she just needs her meds
[2019-12-10 05:11] VITALS: BP 110/78; PULSE 78; RESP 18; O2SAT 98
== END 2019-12-10 05:13 | disposition home or self-care (01) ==
LOC: ER 05:01
PROVIDERS: Emergency Provider Emergency Medicine; Family Provider Internal Medicine; PCP Internal Medicine
DX: Z76.0 Encounter for issue of repeat prescription (principal); F20.9 Schizophrenia, unspecified; F17.210 Nicotine dependence, cigarettes, uncomplicated
CPT/HCPCS: 12345; 99284

== ENCOUNTER 2020-01-07 22:07 | Emergency (ER) | payer MEDICARE, MEDICAID, SELFPAY ==
[2020-01-07 22:08] VITALS: BP 125/77; PULSE 101; RESP 18; TEMP 37; O2SAT 97; BMI 28.3
--- NOTE | 2020-01-07 22:24 | W.ED.PSYCH ---
HPI - Psych General: Chief Complaint: Psychiatric Symptoms Stated Complaint: mhe Time Seen by Provider: 01/07/20 22:08 Source: patient Mode of arrival: ambulatory Limitations: no limitations History of Present Illness: HPI Narrative: Patient is a 39-year-old female who presents to ED today stating I just do not feel good . When asked what is causing her to feel unwell she tells me that she wants to go to sleep for a very long time . Patient tells me she is not having any active thoughts or specific plans for suicide. She is not homicidal. She is not currently experiencing hallucinations. No recent drug or alcohol abuse. MD complaint: suicidal ideation Onset (ago): day(s) (7 days) Duration: intermittent Relieving factors: none Exacerbating factors: none Associated symptoms: Reports suicidal ideation; Deny auditory hallucinations, visual hallucinations, depression or homicidal ideation Treatments prior to arrival: none Review of Systems Const: Denies: fever, chills or body aches Card: Denies: chest pain, palpitations, lightheadedness or syncope Resp: Denies: shortness of breath GI: Denies: abdominal pain, nausea, vomiting or diarrhea Skin/Breast: Denies: rash Neuro: Denies: headache Psych: Reports: suicidal ideation; Denies: anxiety, depression, mood swings, sleeping more, hopelessness, irritability, paranoia, difficulty concentrating, visual hallucinations, auditory hallucinations or homicidal ideation [facility] ED PFSH: Social History Smoking and tobacco status: current every day smoker cigarettes Lives independently: No Household members: family Marital status: Single Highest education level completed: Don't Know service: No Current occupational status: disabled Current gender identity: Female Female Reproductive History: Date of last menstrual period: 10/11/19 Physical Exam Const: COMMON NORMALS: no apparent distress, oriented x3, alert and well nourished GENERAL APPEARANCE: cooperative and well kempt Resp: COMMON NORMALS: normal respiratory effort and clear to auscultation bilaterally AUSCULTATION: clear to auscultation bilaterally Cardio: COMMON NORMALS: regular rate and regular rhythm RATE: regular rate RHYTHM: regular rhythm Neuro: COMMON NORMALS: oriented x3 SENSORIUM/ORIENTATION: Yes alert Psych: COMMON NORMALS: mental status grossly normal, cooperative, affect normal, speech normal and activity/motor behavior normal APPEARANCE: Yes well kempt ATTITUDE: Yes calm and Yes engaged ACTIVITY/MOTOR BEHAVIOR: Yes appropriate eye contact and No psychomotor agitation SPEECH: Yes normal speech MOOD & AFFECT: Yes euthymic mood MEMORY/COGNITION: Yes cognition grossly intact INSIGHT: insight good JUDGEMENT: fair OTHER: 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 Discharge Plan Discharge Patient Disposition: Home, Self-Care Clinical Impression: Passive suicidal ideations Condition: Stable Prescriptions: Continued Risperdal 2 mg tablet 2 mg PO DAILY Qty: 20 RF: 0 No Action Depakote ER 250 mg tablet extended release 24 hr 250 mg PO DAILY Qty: 30 RF: 0 fluoxetine 20 mg capsule 20 mg PO DAILY Qty: 30 RF: 0 Depakote 250 mg tablet,delayed release (DR/EC) 250 mg PO .HS Qty: 10 RF: 0 Prozac 40 mg capsule 40 mg PO DAILY Qty: 10 RF: 0 Discharge Orders: Discharge Order (Routine); Ordered 01/07/20 Ordered By: Mignon Brunson Referrals: Kody Mccarty DO [Primary Care Provider] - Discharge Diet: Usual diet Discharge Activity: Increase activity as tolerated Activity Restrictions/Additional Instructions: As discussed you need to follow up with [facility] for further care. I have refilled your Risperdal as you stated you were almost out of this medication. You may return to the ED for worsening thoughts of suicide, suicide attempt, or other concerns you may have. Coding Level of Care Code ED Tabulating Clerk for Angela Fwd Exam Expanded Problem Focused
[2020-01-08 06:07] VITALS: PULSE 88; RESP 16; O2SAT 96
--- NOTE | 2020-01-08 10:38 | DCPLANNER ---
railway station manager had message to schedule a follow up appointment for patient with [facility]. railway station manager called [facility], spoke with Maribell, patient has an appointment scheduled for February. Patient will be put on a cancelation list, to try and move appointment sooner.
== END 2020-01-08 06:07 | disposition home or self-care (01) ==
PROVIDERS: Emergency Provider Physician Assistant; Family Provider Internal Medicine; PCP Internal Medicine
DX: R45.851 Suicidal ideations (principal); F17.210 Nicotine dependence, cigarettes, uncomplicated; R41.9 Unspecified symptoms and signs involving cognitive functions and awareness; F25.9 Schizoaffective disorder, unspecified
CPT/HCPCS: 12345; 99281; 99283

== ENCOUNTER 2020-01-16 16:20 | Emergency (ER) | payer MEDICARE, SELFPAY ==
[2020-01-16 16:21] VITALS: BP 138/103; PULSE 102; RESP 16; TEMP 36.8; O2SAT 94; BMI 25.4
--- NOTE | 2020-01-16 16:28 | ED_ITS ---
HPI - Psych General: Chief Complaint: Psychiatric Symptoms Stated Complaint: PSYCH EVAL Time Seen by Provider: 01/16/20 16:21 History of Present Illness: HPI Narrative: 39-year-old female presents emergency room via EMS the report from EMS to the nurse was that she was thrown out of her home she usually lives with her mother she became angry but there was no complaint threat of violence against anyone else close no threats of suicidality. My going to talk to the patient she denies being suicidal. She denies being homicidal. She denies being ill recently. She denies being injured. She states she does not want to be seen or evaluated. There is no ob vious injury she is awake and alert oriented no sign of distress. I talked to the nurse there was nothing that she had encountered on her triage assessment indicating any kind of medical emergency. Patient appears to be stable at her baseline at this time. Review of Systems Narrative: Patient denies any recent illness or current illness denies any pain or discomfort [facility] ED PFSH: Medical History Substance abuse Substance abuse Social History Smoking and tobacco status: current every day smoker cigarettes Lives independently: No Household members: family Marital status: Single Highest education level completed: Don't Know service: No Current occupational status: disabled Current gender identity: Female Female Reproductive History: Date of last menstrual period: 01/16/20 Physical Exam Narrative: EXAM NARRATIVE: Patient declines physical exam does not wish to be treated or evaluated. She is awake and alert answers questions appropriately there is no evidence on initial screening by the nurse or in my discussion with her that she is psychotic homicidal or suicidal. MDM - Psych MDM Narrative: Medical decision making narrative: Patient is neither homicidal nor suicidal. She is uncertain as to why she was brought here. She does not want to be seen she specifically stated she did not wish to be evaluated or treated when asked. I have no indication of her needing any kind of medical care at this time she has no expressed suicidal homicidal thoughts she told both myself and the triage nurse she did not had he have any intent of harming herself or anyone else. We will go ahead and allow her to be discharged. Patient appears to be stable at her baseline at this time with no indication of medical emergency. Discharge Plan Discharge Patient Disposition: Home, Self-Care Clinical Impression: Neurocognitive disorder Condition: Stable Prescriptions: No Action Risperdal 2 mg tablet 2 mg PO DAILY Qty: 20 RF: 0 Depakote ER 250 mg tablet extended release 24 hr 250 mg PO DAILY Qty: 30 RF: 0 fluoxetine 20 mg capsule 20 mg PO DAILY Qty: 30 RF: 0 Depakote 250 mg tablet,delayed release (DR/EC) 250 mg PO .HS Qty: 10 RF: 0 Prozac 40 mg capsule 40 mg PO DAILY Qty: 10 RF: 0 Referrals: Kody Mccarty DO [Primary Care Provider] - Activity Restrictions/Additional Instructions: Follow-up with your primary care doctor Coding Level of Care Code ED Industrial Electrician Journeyman for Angela Hough
--- NOTE | 2020-01-16 17:11 | PC.NURSE ---
patient was discharged was offered to help her call a ride and patient stated that she knew someone she could call and she would call when she got outside
[2020-01-16 17:15] VITALS: BP 134/99; PULSE 99; RESP 16; O2SAT 95
== END 2020-01-16 17:19 | disposition home or self-care (01) ==
PROVIDERS: Emergency Provider Family Medicine; Family Provider Internal Medicine; PCP Internal Medicine
DX: R41.9 Unspecified symptoms and signs involving cognitive functions and awareness (principal); F25.9 Schizoaffective disorder, unspecified; F17.210 Nicotine dependence, cigarettes, uncomplicated
CPT/HCPCS: 12345; 99284

== ENCOUNTER 2020-01-17 19:58 | Inpatient (IN) | payer MEDICARE, MEDICAID, SELFPAY ==
[2020-01-17 20:00] VITALS: BP 122/73; PULSE 88; RESP 18; TEMP 36.7; O2SAT 94; BMI 25.6
--- NOTE | 2020-01-17 20:04 | ECG_ITS ---
Measurements Intervals Martin Rate: 83 P: 67 NE: 176 QRS: 91 QRSD: 101 T: 55 QT: 390 QTc: 460 SINUS RHYTHM POSSIBLE LEFT ATRIAL ENLARGEMENT [-0.1mV P WAVE IN V1/V2] BORDERLINE RIGHT AXIS DEVIATION [QRS AXIS > 90] No previous ECG available for comparison Electronically Signed On 01-18-2020 8:01:00 CDT by Misbah Singh M.D. [email or web address]
--- NOTE | 2020-01-17 20:08 | ED_ITS ---
HPI - General Adult General: Chief complaint: Psychiatric Symptoms Stated complaint: out of meds Time Seen by Provider: 01/17/20 20:01 History of Present Illness: HPI narrative: Fatemeh is a 39-year-old female who comes in complaining of suicidal ideation. She cannot answer me why she feels this way and denies having a plan. She states that she wants to come into the [facility] to get help. She stopped taking her medications because she does not feel they are helping. Patient is very vague in avoids eye contact and answering questions directly. She is a difficult historian. Review of Systems General: Reports: ROS unobtainable due to mental status (Patient is uncooperative) PFSH ED PFSH: Medical History Substance abuse Substance abuse Social History Smoking and tobacco status: current every day smoker cigarettes Lives independently: No Household members: family Marital status: Single Highest education level completed: Don't Know service: No Current occupational status: disabled Current gender identity: Female Female Reproductive History: Date of last menstrual period: 01/16/20 Physical Exam Const: COMMON NORMALS: no apparent distress, oriented x3, no limitations, healthy appearing and well nourished EXAM LIMITATIONS: no altered mental status GENERAL APPEARANCE: cooperative, well kempt and well developed ORIENTATION/CONSCIOUSNESS: Yes awake HENMT: COMMON NORMALS: normocephalic, head/scalp atraumatic, hearing grossly normal bilaterally, external ears normal, EAC's normal, external nose normal and moist oral mucous membranes HEAD & SCALP: normal to inspection, normocephalic and atraumatic FACE & SINUS: normal facial exam and face symmetric NOSE: external nose normal and nares normal EXTERNAL EAR: Yes external ears normal EXTERNAL AUDITORY CANAL: EAC's normal MOUTH: oral and palatal mucosa normal and tongue normal Eye: COMMON NORMALS: PERRL, EOMs intact bilaterally, conjunctivae normal and no scleral icterus GENERAL EYE: normal appearance of both eyes and normal light reflex CONJUNCTIVA: Yes conjunctivae normal SCLERA: sclerae normal CORNEA: Yes corneas normal PUPIL: Yes PERRL DIRECT OPHTHALMOSCOPY: Yes normal light reflex Neck/C-Spine: COMMON NORMALS: full ROM, no lymphadenopathy, supple, no meningeal signs and no JVD GENERAL: Yes normal visual inspection and Yes trachea midline CERVICAL SPINE: Yes cervical ROM normal Chest: COMMONS NORMALS: inspection of chest normal and palpation of chest normal Resp: COMMON NORMALS: normal respiratory effort, no retractions, no use of accessory muscles and clear to auscultation bilaterally EFFORT & INSPECTION: Yes able to speak in complete sentences AUSCULTATION: clear to auscultation bilaterally Cardio: COMMON NORMALS: no JVD, regular rate, regular rhythm, S1 normal heart sound, S2 normal heart sound, no gallops, no clicks, no murmurs and no rub JUGULAR VENOUS DISTENTION: no JVD RATE: regular rate RHYTHM: regular rhythm HEART SOUNDS: S1 normal and S2 normal GI: COMMON NORMALS: soft to palpation, non-tender, no hepatosplenomegaly and no masses INSPECTION: Yes normal to inspection PALPATION: Yes soft and Yes no hepatosplenomegaly : COMMON NORMALS: Yes no CVA tenderness BLADDER/KIDNEY EXAM: Yes no CVA tenderness Back/Pelvis: COMMON NORMALS: no CVA tenderness, thoracic and lumbar spine normal to inspection, no thoracic nor lumbar tenderness and thoraco-lumbar ROM normal Extremity: COMMON NORMALS: normal to inspection, full ROM, normal capillary re fill, no joint enlargement, no clubbing, cyanosis or edema and no calf tenderness Neuro: COMMON NORMALS: oriented x3, CN's II-XII intact bilaterally, moves all extremities, no focal motor deficits and no sensory deficits noted MENINGEAL SIGNS: Yes no meningeal signs Psych: COMMON NORMALS: mental status grossly normal, thought process normal, cooperative, affect normal, speech normal and activity/motor behavior normal APPEARANCE: Yes well kempt SPEECH: Yes normal speech THOUGHT PROCESS: normal thought process Skin: COMMON NORMALS: no rashes or lesions noted, skin turgor normal, no jaundice, no petechiae and no mottling GENERAL SKIN EXAM: no rashes or lesions noted and turgor normal Course Vital Signs: Vital signs: Vital Signs Temperature 98.0 F 01/17/20 20:00 Pulse Rate 88 01/17/20 20:00 Respiratory Rate 18 01/17/20 20:00 Blood Pressure 122/73 01/17/20 20:00 Pulse Oximetry 94 01/17/20 20:00 MDM - General Adult MDM Narrative: Medical decision making narrative: The case was reviewed with Dr. Pineda, he is agreeable to admission for clearance. Patient is agreeable to admit and she wants to stay and get help. Lab Data: Labs: Lab Results 01/17/20 01/17/20 01/17/20 Range/Units 20:17 20:17 20:17 WBC 9.6 (4.0-10.0) 10^3/ uL RBC 5.47 H (4.1-5.3) 10^6/u L Hgb 13.7 (11.5-15.3) g/dL Hct 45.2 (37.0-47.0) % MCV 82.6 (81-99) fL MCH 25.0 L (28.0-34.0) pg MCHC 30.3 (30.0-36.0) g/dL RDW 15.9 H (12.1-15.1) % Plt Count 325 (130-400) 10^3/c mm MPV 10.5 H (7.4-10.4) fL Neut % (Auto) 54.7 % Lymph % (Auto) 31.5 % [place] % (Auto) 10.9 % Eos % (Auto) 2.3 % Baso % (Auto) 0.4 % Neut # (Auto) 5.3 (1.8-7.7) 10^3/u L Lymph # (Auto) 3.0 (0.8-4.8) 10^3/u L [place] # (Auto) 1.1 H (0.2-0.9) 10^3/u L Eos # (Auto) 0.2 (0.0-0.8) 10^3/u L Baso # (Auto) 0.0 (0.0-0.1) 10^3/u L Nucleated RBC % (a uto) 0 % Nucleated RBCs # 0.0 /100WBC Sodium 136 (136-145) mmol/L Potassium 3.6 (3.5-5.1) mmol/L Chloride 99 (98-107) mmol/L Carbon Dioxide 25 (22-29) mmol/L Anion Gap 15.6 (5-19) BUN 10 (6-20) mg/dL Creatinine 0.6 (0.5-0.9) mg/dL GFR Calculation 110.7 (90-130) mL/min Glucose 81 (65-115) mg/dL Calculated Osmolal ity 277 L (285-295) mOsm/k g Calcium 9.3 (8.5-10.5) mg/dL Total Bilirubin 0.4 (0.15-1.2) mg/dL AST 25 (0-32) U/L ALT 17 (0-33) U/L Alkaline Phosphata se 88 (35-105) IU/L Total Protein 7.8 (6.6-8.7) g/dL Albumin 4.2 (3.5-5.2) g/dL Globulin 3.6 (1.3-4.6) g/dL TSH 0.74 (0.27-4.20) uIU/ mL HCG, Qual (Negative) Urine Color (Yellow) Urine Appearance (CLEAR) Urine pH (5-7) Ur Specific Gravit y (1.005-1.030) Urine Protein (Negative) Urine Glucose (UA) (Normal) Urine Ketones (Negative) Urine Blood (Negative) Urine Nitrate (Negative) Urine Bilirubin (NEGATIVE) Urine Urobilinogen (Negative) mg/dL Ur Leukocyte Nikki ase (Negative) Urine RBC (0-2) /hpf Urine WBC (0-5) /hpf Ur Squamous Epith Cells (0-5) Urine Bacteria (NONE) Salicylates < 0.3 L (3-10) mg/dL Urine Opiates Scre en (Negative) ng/mL Acetaminophen < 5.0 L (10-30) ug/mL Ur Barbiturates Sc reen (Negative) ng/mL Phenytoin 0.8 L (10-20) ug/mL Valproic Acid 18.9 L (50-100) mcg/mL Carbamazepine 2.0 L (4.0-12.0) ug/mL Ur Phencyclidine S crn (Negative) ng/mL Ur Amphetamines Sc reen (Negative) ng/mL U Benzodiazepines Scrn (Negative) ng/mL [place] 0.1 L (0.6-1.2) mmol/L Urine Cocaine Scre en (Negative) ng/mL U Marijuana (THC) Screen (Negative) ng/mL Ethyl Alcohol < 10 (0-10) mg/dL 01/17/20 01/17/20 01/17/20 Range/Units 20:49 20:49 20:49 WBC (4.0-10.0) 10^3/ uL RBC (4.1-5.3) 10^6/u L Hgb (11.5-15.3) g/dL Hct (37.0-47.0) % MCV (81-99) fL MCH (28.0-34.0) pg MCHC (30.0-36.0) g/dL RDW (12.1-15.1) % Plt Count (130-400) 10^3/c mm MPV (7.4-10.4) fL Neut % (Auto) % Lymph % (Auto) % [place] % (Auto) % Eos % (Auto) % Baso % (Auto) % Neut # (Auto) (1.8-7.7) 10^3/u L Lymph # (Auto) (0.8-4.8) 10^3/u L [place] # (Auto) (0.2-0.9) 10^3/u L Eos # (Auto) (0.0-0.8) 10^3/u L Baso # (Auto) (0.0-0.1) 10^3/u L Nucleated RBC % (a uto) % Nucleated RBCs # /100WBC Sodium (136-145) mmol/L Potassium (3.5-5.1) mmol/L Chloride (98-107) mmol/L Carbon Dioxide (22-29) mmol/L Anion Gap (5-19) BUN (6-20) mg/dL Creatinine (0.5-0.9) mg/dL GFR Calculation (90-130) mL/min Glucose (65-115) mg/dL Calculated Osmolal ity (285-295) mOsm/k g Calcium (8.5-10.5) mg/dL Total Bilirubin (0.15-1.2) mg/dL AST (0-32) U/L ALT (0-33) U/L Alkaline Phosphata se (35-105) IU/L Total Protein (6.6-8.7) g/dL Albumin (3.5-5.2) g/dL Globulin (1.3-4.6) g/dL TSH (0.27-4.20) uIU/ mL HCG, Qual Negative (Negative) Urine Color Red (Yellow) Urine Appearance Cloudy (CLEAR) Urine pH 5 (5-7) Ur Specific Gravit y 1.025 (1.005-1.030) Urine Protein 1+ H (Negative) Urine Glucose (UA) Norm (Normal) Urine Ketones 1+ H (Negative) Urine Blood 3+ H (Negative) Urine Nitrate Negative (Negative) Urine Bilirubin Neg (NEGATIVE) Urine Urobilinogen 1 H (Negative) mg/dL Ur Leukocyte Nikki ase Negative (Negative) Urine RBC >100 H (0-2) /hpf Urine WBC 10-15 H (0-5) /hpf Ur Squamous Epith Cells 0-4 H (0-5) Urine Bacteria Trace (NONE) Salicylates (3-10) mg/dL Urine Opiates Scre en Negative (Negative) ng/mL Acetaminophen (10-30) ug/mL Ur Barbiturates Sc reen Negative (Negative) ng/mL Phenytoin (10-20) ug/mL Valproic Acid (50-100) mcg/mL Carbamazepine (4.0-12.0) ug/mL Ur Phencyclidine S crn Negative (Negative) ng/mL Ur Amphetamines Sc reen Positive H (Negative) ng/mL U Benzodiazepines Scrn Negative (Negative) ng/mL [place] (0.6-1.2) mmol/L Urine Cocaine Scre en Negative (Negative) ng/mL U Marijuana (THC) Screen Negative (Negative) ng/mL Ethyl Alcohol (0-10) mg/dL EKG Data^: EKG 1: Attestation: I personally reviewed and interpreted this EKG as follows: EKG interpretation date: 01/17/20 EKG interpretation time: 20:17 Interpretation: Normal sinus, 83 beats a minute, no acute ST-T wave changes, normal intervals, no blocks normal QTC. Discharge Plan Discharge Patient Disposition: Admitted As Inpatient Clinical Impression: Suicidal ideation Condition: Stable Prescriptions: No Action risperidone [Risperdal] 2 mg tablet 2 mg PO DAILY Qty: 20 RF: 0 divalproex [Depakote ER] 250 mg tablet extended release 24 hr 250 mg PO DAILY Qty: 30 RF: 0 fluoxetine 20 mg capsule 20 mg PO DAILY Qty: 30 RF: 0 Depakote 250 mg tablet,delayed release (DR/EC) 250 mg PO .HS Qty: 10 RF: 0 Prozac 40 mg capsule 40 mg PO DAILY Qty: 10 RF: 0 Referrals: Kody Mccarty DO [Primary Care Provider] - Coding Level of Care Code ED Fabric Designer for Chg Fwd Exam Comprehensive
[2020-01-17 20:21] LABS: Basophils % 0.4 %; Eosinophils # 0.2 10^3/uL (0.0-0.8); Eosinophils % 2.3 %; Hematocrit 45.2 % (37.0-47.0); Hemoglobin 13.7 g/dL (11.5-15.3); Lymphocytes % 31.5 %; Mean Corpuscular HGB Conc 30.3 g/dL (30.0-36.0); Mean Corpuscular Volume 82.6 fL (81-99); Mean Platelet Volume 10.5 fL (7.4-10.4); Monocytes # 1.1 10^3/uL (0.2-0.9); Monocytes % 10.9 %; Neutrophils # 5.3 10^3/uL (1.8-7.7); Neutrophils % 54.7 %; Nucleated Red Blood Cells % 0 %; Platelet Count 325 10^3/cmm (130-400); Red Blood Count 5.47 10^6/uL (4.1-5.3); Red Cell Distribution Width 15.9 % (12.1-15.1); White Blood Count 9.6 10^3/uL (4.0-10.0)
[2020-01-17 20:40] LABS: Lithium 0.1 mmol/L (0.6-1.2)
[2020-01-17 20:51] LABS: Acetaminophen < 5.0 ug/mL (10-30); Alanine Aminotransferase 17 U/L (0-33); Albumin Level 4.2 g/dL (3.5-5.2); Alcohol Level < 10 mg/dL (0-10); Alkaline Phosphatase 88 IU/L (35-105); Anion Gap 15.6 (5-19); Aspartate Amino Transferase 25 U/L (0-32); Blood Urea Nitrogen 10 mg/dL (6-20); Calcium 9.3 mg/dL (8.5-10.5); Carbon Dioxide 25 mmol/L (22-29); Chloride 99 mmol/L (98-107); Globulin 3.6 g/dL (1.3-4.6); Glomerular Filtration Rate 110.7 mL/min (90-130); Glucose 81 mg/dL (65-115); Osmolality Calculated 277 mOsm/kg (285-295); Phenytoin Dilantin 0.8 ug/mL (10-20); Potassium 3.6 mmol/L (3.5-5.1); Salicylate < 0.3 mg/dL (3-10); Sodium 136 mmol/L (136-145); Thyroid Stimulating Hormone 0.74 uIU/mL (0.27-4.20); Total Bilirubin 0.4 mg/dL (0.15-1.2); Total Protein 7.8 g/dL (6.6-8.7); Valproic Acid Level 18.9 mcg/mL (50-100)
[2020-01-17 21:07] LABS: HCG Qualitative Urine. Negative (Negative)
[2020-01-17 21:08] LABS: Add Urine Culture? Yes; Add Urine Microscopic? YES; Bacteria Urine TRACE; Bilirubin Urine Neg (NEGATIVE); Blood Urine 3+ (Negative); Glucose Urine UA Norm (Normal); Ketones Urine 1+ (Negative); Leukocyte Esterase Urine Negative (Negative); Nitrate Urine Negative (Negative); Protein Urine 1+ (Negative); RBC Urine >100 /hpf (0-2); Specific Gravity, Urine 1.025 (1.005-1.030); Squamous Epithelial Cell Urine 0-4 (0-5); Urine Appearance Cloudy (CLEAR); Urine Color Red (Yellow); Urobilinogen Urine 1 mg/dL (Negative); pH Urine 5 (5-7)
[2020-01-17 21:17] LABS: Amphetamines Screen Urine Positive (Negative); Barbiturates Screen Urine Negative (Negative); Benzodiazepines Screen Urine Negative (Negative); Cocaine Screen Urine Negative (Negative); Opiate Screen Urine Negative (Negative); PCP Screen Urine Negative (Negative); THC Screen Urine Negative (Negative)
[2020-01-17 23:14] VITALS: BP 133/86; PULSE 85; RESP 16; TEMP 36.6; O2SAT 96
[2020-01-18 00:44] VITALS: BP 135/89; PULSE 97; RESP 22; TEMP 36.7; O2SAT 93
[2020-01-18 06:00] VITALS: BP 97/64; PULSE 85; RESP 18; TEMP 37.3; O2SAT 93
[2020-01-18] MEDS: divalproex ER 250 mg Tablet (24H) PO (09:31)
[2020-01-18] MEDS: fluoxetine 20 mg Capsule PO (09:31)
[2020-01-18] MEDS: risperiDONE 2 mg Tablet PO (09:31)
[2020-01-18 13:32] VITALS: BP 106/71; PULSE 85; RESP 18; TEMP 37.2; O2SAT 93
--- NOTE | 2020-01-18 14:05 | P.HP_ITS ---
Providers/Chief Complaint Admitting Physician: Randall Pineda MD Primary Care Provider: Kody Mccarty DO Chief Complaint: out of meds/SI HPI NPU History of Present Illness Chief complaint:? I hear voices. History of present illness: Fatemeh Polanco Is a 38-year-old female who was admitted to the psychiatric unit after presenting to the emergency room 3 times in a 5 day. When asked how we can help her, she reports that she hears voices. She says that she hears one voice. She does not recognize who it is. He comes from outside of her head. She refuses to disclose what the voice says but says that it tells her to do things that she should not do. Voice continuously for a couple of years and claims that her current medications really do not help with it. However they have helped her in the past. She denies side effects to either fluoxetine or risperidone. She says that when she drinks coffee, the voice is less intense and bothers her less. She claims that he she is compliant with medications at this time though compliance has been a problem in the past. She also reports that she is now homeless. Again, she has a tendency to be qu ite vague with regard to personal history. She seems to be guarded but denies any specific paranoia. It is known that the past she has lived with her mother but that has been a contentious relationship. She gives no details are no details are known at this time. She has had contact with her CPR see special education case manager as evidenced by progress notes in her chart. However, historically, the patient has not been very cooperative with case management. Emergency room note: HPI narrative: Fatemeh is a 39-year-old female who comes in complaining of suicidal ideation. She cannot answer me why she feels this way and denies having a plan. She states that she wants to come into the M[facility] to get help. She stopped taking her medications because she does not feel they are helping. Patient is very vague in avoids eye contact and answering questions directly. She is a difficult historian. Mental health history: Since 10/07/2019, she has been hospitalized for in the emergency room 7 times. Social history: There are 2 her guardian. Guardianship cannot be confirmed at this time. Legal history:Unchanged from her hospitalization on 10/12/2019 Past medical history:Unchanged from her hospitalization on 10/12/2019 Laboratory Tests 01/17/20 01/17/20 20:17 20:49 Urine Opiates Screen Negative Ur Barbiturates Screen Negative Valproic Acid 18.9 L Ur Phencyclidine Scrn Negative Ur Amphetamines Screen Positive H U Benzodiazepines Scrn Negative Urine Cocaine Screen Negative U Marijuana (THC) Screen Negative Ethyl Alcohol < 10 Meds NPU Allergies Allergy/AdvReac Type Severity Reaction Status Date / Time codeine Allergy Mild ALGY-Rash Verified 01/16/20 16:32 Penicillins Allergy Mild ALGY-Hives Verified 01/16/20 16:32 PFSH NPU PFSH: Medical History Substance abuse Substance abuse Social History Smoking and tobacco status: current every day smoker cigarettes Lives independently: No Household members: family Marital status: Single Highest education level completed: Don't Know service: No Current occupational status: disabled Current gender identity: Female Mental Status Exam MSE Comments: The patient is on alert interpersonally engaged woman appearing approximately her stated age. She has very short hair and is partially ed entulous. She is not believed to be a reliable informant. She guarded though the reason for her guarding is unclear. She is not paranoid. Appearance: hygiene is good; no gross neurological deficits., gait is unremarkable; AIMS=0 Speech: Speech is of normal rate and rhythm; he is mildly dysarthric and sometimes it is difficult to understand her. Thought processes: Thought processes are [place]. Judgment is adequate for safety. Associations: intact Psychotic processes: She is mildly guarded but not paranoia. There is no attention to the internal stimuli. Auditory hallucinations are as described above. She hears one voice that does tell her things that she should not do. She does not recognize the voice. Visual hallucinations are denied. Judgment: Insight is fair. Problem solving skills are adequate for safety. Orientation: The patient is oriented to person, place time and situation. Memory: no deficits noted in immediate, intermediate, or remote spheres. Attention: The patient is alert and interpersonally engaged. Language: Verbalizations are coherent. Fund of knowledge: Fund of knowledge is poor. Affect/Mood: Affect is Sad with a depressed mood. Denied suicidal ideation Affective range appropriate. Psychosis: perception unimpaired except through cognitive distortion and cognitive deficit; reality testing intact. 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 She has tolerated risperidone in the past and reports are that it has been an official. Intended this time is to increase the dosage to 4 mg at bedtime. Treatment plan: Due to the psychiatric conditions and treatment listed in the Assessment and Plan - the patient requires continued hospitalization. Will provide a safe and therapeutic environment for patient.. Will continue inpatient treatment to allow for medication adjustment and monitoring. Will continue q15 min safety checks. Will increase risperidone to 4 mg at bedtime and monitor for medication side effects.Depakote will be continued at 250 milligrams daily, and fluoxetine 20 mg daily. Monitor patient's mood, sleep, appetite, and behavior closely. Encourage patient to participate in individual and group therapeutic sessions on the [place]. Estimated length of stay 5 days The expected benefits and potential side effects of patient's psychiatric medications were discussed with the patient. The patient understands and consents to treatment.CRITERIA FOR DISCHARGE: stable on medications and no longer an imminent risk Involuntary Hold Information 96 Hour Hold: 96 Hour Involuntary Admission: No 96 Hour Hold Ending Date: 10/13/19 96 Hour Hold Ending Time: 02:56 Attestations NPU Medical Necessity Statement*: patient will remain in the hospital another 3-4 nights while her medication regimen efficacy is established. Coding Level of Care Code Acute Outside Salesperson for Angela Hough
[2020-01-18 21:08] VITALS: BP 106/70; PULSE 89; RESP 21; TEMP 37.2; O2SAT 97
--- NOTE | 2020-01-18 21:15 | PC.NURSE ---
Prn sleeping med offered, pt refused.
[2020-01-19 06:00] VITALS: BP 110/68; PULSE 77; RESP 23; TEMP 36.8; O2SAT 92
[2020-01-19] MEDS: fluoxetine 20 mg Capsule PO (08:25)
[2020-01-19] MEDS: risperiDONE 2 mg Tablet 4 MG PO (08:25)
[2020-01-19] MEDS: divalproex ER 250 mg Tablet (24H) PO (08:25)
--- NOTE | 2020-01-19 12:01 | PM.NPN ---
Subjective NPU Subjective: Interval history: Patient today is without ocmplaint, She has made no progress in improving her living situation. Mental Status Exam MSE Comments: The patient is on alert interpersonally engaged woman appearing approximately her stated age. She has very short hair and is partially edentulous. She is not believed to be a reliable informant. She guarded though the reason for her guarding is unclear. She is not paranoid. Appearance: hygiene is good; no gross neurological deficits., gait is unremarkable; AIMS=0 Speech: Speech is of normal rate and rhythm; he is mildly dysarthric and sometimes it is difficult to understand her. Thought processes: Thought processes are [place]. Judgment is adequate for safety. Associations: intact Psychotic processes: She is mildly guarded but not paranoia. There is no attention to the internal stimuli. Auditory hallucinations are as described above. She hears one voice that does tell her things that she should not do. She does not recognize the voice. Visual hallucinations are denied. Judgment: Insight is fair. Problem solving skills are adequate for safety. Orientation: The patient is oriented to person, place time and situation. Memory: no deficits noted in immediate, intermediate, or remote spheres. Attention: The patient is alert and interpersonally engaged. Language: Verbalizations are coherent. Fund of knowledge: Fund of knowledge is poor. Affect/Mood: Affect is Sad with a depressed mood. Denied suicidal ideation Affective range appropriate. Psychosis: perception unimpaired except through cognitive distortion and cognitive deficit; reality testing intact. Cognition: Patient Appearance: Disheveled/Poor Hygiene Level of Consciousness: Awake, Alert, Appropriate and Follows Commands Patient Cognition Impaired: No Ability to Follow Directions: Fair Patient Orientation (long list): Person, Place, Time and Name Comprehension Ability: Mild Impairment Hallucination Type: None Delusion Description: Not Present Thought Process: Disorganized Affect: Affect Description: Appropriate Depressive Symptoms: Unhappiness Behavior: Patient Behavior: Appropriate and Cooperative Speech Pattern: Appropriate and Clear Vitals/I&O/Wt Last Vital Signs Temp 98.2 F 01/19/20 06:00 Pulse 77 01/19/20 06:00 Resp 23 H 01/19/20 06:00 BP 110/68 01/19/20 06:00 Pulse Ox 92 01/19/20 06:00 Weight last 48 hrs Weight 63.503 kg Data NPU : 01/17/20 20:17 01/17/20 20:17 Micro: Microbiology 01/17/20 20:49 Urine Culture - Preliminary Urine,Clean Catch Microbiology 01/17/20 20:49 Urine,Clean Catch Urine Culture - Preliminary A&P Additional A&P Information 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 She has tolerated risperidone in the past and reports are that it has been an official. Intended this time is to increase the dosage to 4 mg at bedtime. Treatment plan: Due to the psychiatric conditions and treatment listed in the Assessment and Plan - the patient requires continued hospitalization. Will provide a safe and therapeutic environment for patient.. Will continue inpatient treatment to allow for medication adjustment and monitoring. Will continue q15 min safety checks. Will increase risperidone to 4 mg at bedtime and monitor for medication side effects.Depakote will be continued at 250 milligrams daily, and fluoxetine 20 mg daily. HD#3: no medication changes. Will apply for guardianship. Monitor patient's mood, sleep, appetite, and behavior closely. Encourage patient to participate in individual and group therapeutic sessions on the [place]. Estimated length of stay 5 days The expected benefits and potential side effects of patient's psychiatric medications were discussed with the patient. The patient understands and consents to treatment.CRITERIA FOR DISCHARGE: stable on medications and no longer an imminent risk Involuntary Hold Information 96 Hour Hold: 96 Hour Involuntary Admission: No 96 Hour Hold Ending Date: 10/13/19 96 Hour Hold Ending Time: 02:56 Attestations NPU Medical Necessity Statement*: Nasal remain in the hospital another 4-5 nights while we apply for guardianship and establish safe discharge plan. Coding Level of Care Code Acute An/Syq 13 Nav/C2 Operator for Angela Hough
[2020-01-19 12:52] VITALS: BP 100/65; PULSE 91; RESP 18; TEMP 36.9; O2SAT 98
[2020-01-19] MEDS: trazodone 50 mg Tablet PO (20:26)
--- NOTE | 2020-01-19 20:33 | PC.NURSE ---
AT 2025, PT GIVEN PRN TRAZODONE PER REQUEST FOR SLEEP AIDE.
[2020-01-19 21:16] VITALS: BP 99/58; PULSE 92; RESP 20; TEMP 37; O2SAT 93
[2020-01-20 06:00] VITALS: BP 114/74; PULSE 74; RESP 16; TEMP 36.8; O2SAT 94
[2020-01-20] MEDS: fluoxetine 20 mg Capsule PO (09:27)
[2020-01-20] MEDS: risperiDONE 2 mg Tablet 4 MG PO (09:27)
[2020-01-20] MEDS: divalproex ER 250 mg Tablet (24H) PO (09:27)
[2020-01-20] MEDS: acetaminophen 325 mg Tablet 650 MG PO (09:52)
--- NOTE | 2020-01-20 10:18 | PM.NDC ---
Reason for Visit Reason for Visit: Reason For Visit: out of meds/SI Brief History: Chief complaint:? I hear voices. History of present illness: Fatemeh Polanco Is a 38-year-old female who was admitted to the psychiatric unit after presenting to the emergency room 3 times in a 5 day. When asked how we can help her, she reports that she hears voices. She says that she hears one voice. She does not recognize who it is. He comes from outside of her head. She refuses to disclose what the voice says but says that it tells her to do things that she should not do. Voice continuously for a couple of years and claims that her current medications really do not help with it. However they have helped her in the past. She denies side effects to either fluoxetine or risperidone. She says that when she drinks coffee, the voice is less intense and bothers her less. She claims that he she is compliant with medications at this time though compliance has been a problem in the past. She also reports that she is now homeless. Again, she has a tendency to be quite vague with regard to personal history. She seems to be guarded but denies any specific paranoia. It is known that the past she has lived with her mother but that has been a contentious relationship. She gives no details are no details are known at this time. She has had contact with her CPR see child welfare caseworker as evidenced by progress notes in her chart. However, historically, the patient has not been very cooperative with case management. Laboratory Tests 01/17/20 01/17/20 20:17 20:49 Urine Opiates Scre en Negative Ur Barbiturates Sc reen Negative Ur Phencyclidine S crn Negative Ur Amphetamines Sc reen Positive H U Benzodiazepines Scrn Negative Urine Cocaine Scre en Negative U Marijuana (THC) Screen Negative Ethyl Alcohol < 10 Emergency room note: HPI narrative: Fatemeh is a 39-year-old female who comes in complaining of suicidal ideation. She cannot answer me why she feels this way and denies having a plan. She states that she wants to come into the MPU to get help. She stopped taking her medications because she does not feel they are helping. Patient is very vague in avoids eye contact and answering questions directly. She is a difficult historian. Mental health history: Since 10/07/2019, she has been hospitalized times and in the emergency room 7 times. Hospital Course Hospital Course the patient was admitted to psychiatric unit and provided supportive with access to nursing assistance and entered into a full array of individual and group therapies as part of the unit protocol. She is well known to this physician and this program. This was her fourth admission to the psychiatric unit in as many months in addition to 7 presentations to the emergency room. As is typical, she responds well to the stabilization unit environment, resolution of a substance abuse issues, and reinstatement of her medication. Social work services was instrumental in coordinating communication with the patient's mother who is now supportive patient be placed under guardianship. Guardianship papers were filed. However, due to the delays in court proceedings from the pandemic, is likely that this process will take several months. It was deemed appropriate that she return home until guardianship can be decided. Involuntary Hold Information 96 Hour Hold: 96 Hour Involuntary Admission: No 96 Hour Hold Ending Date: 10/13/19 96 Hour Hold Ending Time: 02:56 Mental Status Exam MSE Comments: The patient is on alert interpersonally engaged woman appearing approximately her stated age. She has very short hair and is partially edentulous. She is believed to be a reliable informant to the best of her ability. she is no longer guarded. She is not paranoid. Appearance: hygiene is good; no gross neurological deficits., gait is unremarkable; AIMS=0 Speech: Speech is of normal rate and rhythm; he is mildly dysarthric and sometimes it is difficult to understand her. Thought processes: Thought processes are [place]. Judgment is adequate for safety. Associations: intact Psychotic processes: There is no attention to the internal stimuli. Auditory hallucinations are denied. Visual hallucinations are denied. Judgment: Insight is fair. Problem solving skills are adequate for safety. Orientation: The patient is oriented to person, place time and situation. Memory: no deficits noted in immediate, intermediate, or remote spheres. Attention: The patient is alert and interpersonally engaged. Language: Verbalizations are coherent. Fund of knowledge: Fund of knowledge is poor. Affect/Mood: Affect is consistent with euthymic mood. She denied suicidal or homicidal ideation. Reality testing is intact. Discharge Data Vitals: Last Vital Signs Temp 98.2 F 01/20/20 06:00 Pulse 74 01/20/20 06:00 Resp 16 01/20/20 06:00 BP 114/74 01/20/20 06:00 Pulse Ox 94 04/15/20 06:00 Discharge Plan Discharge Patient Disposition: Home, Self-Care Condition: Stable Prescriptions: New risperidone 2 mg Tablet 4 mg PO DAILY Qty: 30 RF: 4 olanzapine 5 mg Tablet,Disintegrating 5 mg PO DAILY PRN (Reason: voices) Qty: 30 RF: 4 Continued fluoxetine 20 mg capsule 20 mg PO DAILY Qty: 30 RF: 4 Depakote ER 250 mg tablet extended release 24 hr 250 mg PO DAILY Qty: 30 RF: 4 Discontinued risperidone [Risperdal] 2 mg tablet 2 mg PO DAILY Qty: 20 RF: 0 divalproex [Depakote] 250 mg tablet,delayed release (DR/EC) 250 mg PO .HS Qty: 10 RF: 0 fluoxetine [Prozac] 40 mg capsule 40 mg PO DAILY Qty: 10 RF: 0 Discharge Orders: Discharge Order (Routine); Ordered 01/20/20 Ordered By: Jose Clement Referrals: Felix Alvarenga MD [Physician] - 02/10/20 1:45 pm Kody Mccarty DO [Primary Care Provider] - Discharge Attestations NPU Time Spent in Discharge Care*: greater than 30 min Status at Discharge: Cognitive status at discharge: mildly impaired cognition, Behavioral status at discharge: independent in ADL's, Coding Level of Care Code Acute Candy Butcher for Angela Hough
[2020-01-20 10:58] VITALS: BP 114/74; PULSE 74; RESP 16; TEMP 36.8; O2SAT 94
== END 2020-01-20 15:26 | disposition home or self-care (01) | DRG 882 ==
LOC: ER 22:27 → NP 23:06
PROVIDERS: Admitting Provider Psychiatry & Neurology Psychiatry; Emergency Provider Emergency Medicine; Family Provider Internal Medicine; PCP Internal Medicine; Visit Provider Psychiatry & Neurology Psychiatry
DX: F43.29 Adjustment disorder with other symptoms (principal); R45.851 Suicidal ideations; F17.210 Nicotine dependence, cigarettes, uncomplicated
CPT/HCPCS: 12345; 80053; 80156; 80164; 80178; 80185; 80306; 80307; 81001; 81025; 84443; 85025; 87086; 93005; 99284; G0378

== ENCOUNTER 2020-02-12 07:41 | Emergency (ER) | payer MEDICARE, MEDICAID, SELFPAY ==
[2020-02-12 07:45] VITALS: BP 133/83; PULSE 85; RESP 16; TEMP 36.8; O2SAT 96; BMI 25.6
--- NOTE | 2020-02-12 07:52 | W.ED.PSYCH ---
HPI - Psych General: Chief Complaint: Psychiatric Symptoms Stated Complaint: SI WITH PLAN Time Seen by Provider: 02/12/20 07:42 Source: patient Mode of arrival: EMS Limitations: no limitations History of Present Illness: HPI Narrative: Patient is a 39-year-old female well-known to the emergency department and NPU here after being brought by EMS for complaints of suicidal ideations over the past 3 days. Patient tells me that I just don't feel well which is the same complaint that she has expressed every time I have seen her. When asked to further clarify she responds I am suicidal, I am not happy . Patient does not seem to have the cognitive abilities to elaborate on this further. She tells me once at the age of 17 she cut her left forearm in an apparent suicide attempt but states she has had no further attempts. Reviewing old NPU documentation, it appears patient is very poor at following up as an outpatient once she is discharged from the unit. Patient denies hallucinations. Denies drug or alcohol use. MD complaint: suicidal ideation Onset (ago): day(s) (x3) Duration: constant History of same: Yes Relieving factors: none Exacerbating factors: none Associated psychiatric symptoms: depression and suicidal ideation Associated symptoms: Reports depression and suicidal ideation; Deny auditory hallucinations, visual hallucinations or homicidal ideation If self harm: admits thoughts of self harm Review of Systems Const: Denies: fever or chills Card: Denies: chest pain, palpitations, lightheadedness or syncope Resp: Denies: shortness of breath GI: Denies: abdominal pain, nausea, vomiting or diarrhea Skin/Breast: Denies: rash Neuro: Denies: headache Psych: Reports: depression and suicidal ideation; Denies: anxiety, visual hallucinations, auditory hallucinations or homicidal ideation [facility] ED PFSH: Social History Smoking and tobacco status: current every day smoker cigarettes Lives independently: No Household members: family Marital status: Single Highest education level completed: Don't Know service: No Current occupational status: disabled Current gender identity: Female Female Reproductive History: Date of last menstrual period: 01/17/20 Physical Exam Const: COMMON NORMALS: no apparent distress, oriented x3, alert and well nourished GENERAL APPEARANCE: cooperative and well kempt ORIENTATION/CONSCIOUSNESS: Yes oriented to person Resp: COMMON NORMALS: normal respiratory effort and clear to auscultation bilaterally AUSCULTATION: clear to auscultation bilaterally Cardio: COMMON NORMALS: regular rate and regular rhythm RATE: regular rate RHYTHM: regular rhythm Neuro: ABDELRAHMAN COMA SCALE: document GCS findings [place] coma scale eye opening: Spontaneous [place] coma scale verbal response: Orientated [place] coma scale motor response: [place]bey commands Abdelrahman coma scale total score: 15 COMMON NORMALS: oriented x3 SENSORIUM/ORIENTATION: Yes alert and Yes oriented to person Psych: COMMON NORMALS: mental status grossly normal (at mental baseline; has baseline cognitive delays), cooperative, affect normal, speech normal and activity/motor behavior normal APPEARANCE: Yes well kempt ACTIVITY/MOTOR BEHAVIOR: Yes appropriate eye contact and No psychomotor agitation SPEECH: Yes normal speech MOOD & AFFECT: Yes euthymic mood ATTENTION/CONCENTRATION: Yes attention grossly intact and Yes concentration grossly intact INSIGHT: fair JUDGEMENT: fair Skin: COMMON NORMALS: no rashes or lesions noted GENERAL SKIN EXAM: no rashes or lesions noted MDM - Psych MDM Narrative: Medical decision making narrative: Dr. Pineda evaluated patient and has cleared for for discharge. He is requesting we place patient on Invega 6 mg every morning and in 3 days she may discontinue her Risperidone It is imperative that she follows up at [facility] for further evaluation. Lab Data: Labs: Lab Results 02/12/20 02/12/20 02/12/20 Range/Units 07:45 08:30 08:30 WBC 7.6 (4.0-10.0) 10^3/ uL RBC 5.23 (4.1-5.3) 10^6/u L Hgb 13.4 (11.5-15.3) g/dL Hct 43.1 (37.0-47.0) % MCV 82.4 (81-99) fL MCH 25.6 L (28.0-34.0) pg MCHC 31.1 (30.0-36.0) g/dL RDW 15.9 H (12.1-15.1) % Plt Count 303 (130-400) 10^3/c mm MPV 10.4 (7.4-10.4) fL Neut % (Auto) 60.2 % Lymph % (Auto) 27.0 % [place] % (Auto) 10.8 % Eos % (Auto) 1.3 % Baso % (Auto) 0.4 % Neut # (Auto) 4.6 (1.8-7.7) 10^3/u L Lymph # (Auto) 2.1 (0.8-4.8) 10^3/u L [place] # (Auto) 0.8 (0.2-0.9) 10^3/u L Eos # (Auto) 0.1 (0.0-0.8) 10^3/u L Baso # (Auto) 0.0 (0.0-0.1) 10^3/u L Nucleated RBC % (a uto) 0 % Nucleated RBCs # 0.0 /100WBC Sodium 140 (136-145) mmol/L Potassium 4.1 (3.5-5.1) mmol/L Chloride 105 (98-107) mmol/L Carbon Dioxide 26 (22-29) mmol/L Anion Gap 13.1 (5-19) BUN 10 (6-20) mg/dL Creatinine 0.6 (0.5-0.9) mg/dL GFR Calculation 110.7 (90-130) mL/min Glucose 84 (65-115) mg/dL Calculated Osmolal ity 285 (285-295) mOsm/k g Calcium 8.7 (8.5-10.5) mg/dL Total Bilirubin 0.2 (0.15-1.2) mg/dL AST 17 (0-32) U/L ALT 12 (0-33) U/L Alkaline Phosphata se 69 (35-105) IU/L Total Protein 7.6 (6.6-8.7) g/dL Albumin 4.2 (3.5-5.2) g/dL Globulin 3.4 (1.3-4.6) g/dL HCG, Qual (Negative) Salicylates 0.6 L (3-10) mg/dL Urine Opiates Scre en Negative (Negative) ng/mL Acetaminophen < 5.0 L (10-30) ug/mL Ur Barbiturates Sc reen Negative (Negative) ng/mL Ur Phencyclidine S crn Negative (Negative) ng/mL Ur Amphetamines Sc reen Negative (Negative) ng/mL U Benzodiazepines Scrn Negative (Negative) ng/mL Urine Cocaine Scre en Negative (Negative) ng/mL U Marijuana (THC) Screen Negative (Negative) ng/mL Ethyl Alcohol < 10 (0-10) mg/dL 02/12/20 Range/Units 08:30 WBC (4.0-10.0) 10^3/ uL RBC (4.1-5.3) 10^6/u L Hgb (11.5-15.3) g/dL Hct (37.0-47.0) % MCV (81-99) fL MCH (28.0-34.0) pg MCHC (30.0-36.0) g/dL RDW (12.1-15.1) % Plt Count (130-400) 10^3/c mm MPV (7.4-10.4) fL Neut % (Auto) % Lymph % (Auto) % [place] % (Auto) % Eos % (Auto) % Baso % (Auto) % Neut # (Auto) (1.8-7.7) 10^3/u L Lymph # (Auto) (0.8-4.8) 10^3/u L [place] # (Auto) (0.2-0.9) 10^3/u L Eos # (Auto) (0.0-0.8) 10^3/u L Baso # (Auto) (0.0-0.1) 10^3/u L Nucleated RBC % (a uto) % Nucleated RBCs # /100WBC Sodium (136-145) mmol/L Potassium (3.5-5.1) mmol/L Chloride (98-107) mmol/L Carbon Dioxide (22-29) mmol/L Anion Gap (5-19) BUN (6-20) mg/dL Creatinine (0.5-0.9) mg/dL GFR Calculation (90-130) mL/min Glucose (65-115) mg/dL Calculated Osmolal ity (285-295) mOsm/k g Calcium (8.5-10.5) mg/dL Total Bilirubin (0.15-1.2) mg/dL AST (0-32) U/L ALT (0-33) U/L Alkaline Phosphata se (35-105) IU/L Total Protein (6.6-8.7) g/dL Albumin (3.5-5.2) g/dL Globulin (1.3-4.6) g/dL HCG, Qual Negative (Negative) Salicylates (3-10) mg/dL Urine Opiates Scre en (Negative) ng/mL Acetaminophen (10-30) ug/mL Ur Barbiturates Sc reen (Negative) ng/mL Ur Phencyclidine S crn (Negative) ng/mL Ur Amphetamines Sc reen (Negative) ng/mL U Benzodiazepines Scrn (Negative) ng/mL Urine Cocaine Scre en (Negative) ng/mL U Marijuana (THC) Screen (Negative) ng/mL Ethyl Alcohol (0-10) mg/dL Discharge Plan Discharge Patient Disposition: Home, Self-Care Clinical Impression: Suicidal ideation Condition: Stable Prescriptions: New paliperidone [Invega] 6 mg tablet extended release 24hr 6 mg PO DAILY Qty: 30 RF: 0 No Action risperidone 2 mg Tablet 4 mg PO DAILY Qty: 30 RF: 4 olanzapine 5 mg Tablet,Disintegrating 5 mg PO DAILY PRN (Reason: voices) Qty: 30 RF: 4 divalproex [Depakote ER] 250 mg tablet extended release 24 hr 250 mg PO DAILY Qty: 30 RF: 4 trazodone 50 mg Tablet 50 mg PO BEDTIME RF: 0 acyclovir 200 mg Capsule 200 mg PO BID PRN (Reason: outbreaks) RF: 0 fluoxetine 20 mg capsule 40 mg PO DAILY RF: 0 Discharge Orders: Discharge Order (Routine); Ordered 02/12/20 Ordered By: Mignon Brunson Referrals: Kody Mccarty DO [Primary Care Provider] - Activity Restrictions/Additional Instructions: START TAKING THE NEW PRESCRIPTION FOR INVEGA IMMEDIATELY/TODAY. DISCONTINUE YOUR RISPERIDONE IN THREE DAYS. It is imperative that you follow-up with [facility] for further evaluation. Please call them to schedule an appointment. Coding Level of Care Code ED Catering Administrative Assistant for Chg Fwd Exam Detailed
[2020-02-12 08:02] VITALS: O2SAT 95
[2020-02-12 08:25] LABS: Amphetamines Screen Urine Negative (Negative); Barbiturates Screen Urine Negative (Negative); Benzodiazepines Screen Urine Negative (Negative); Cocaine Screen Urine Negative (Negative); Opiate Screen Urine Negative (Negative); PCP Screen Urine Negative (Negative); THC Screen Urine Negative (Negative)
[2020-02-12 08:46] LABS: Basophils % 0.4 %; Eosinophils # 0.1 10^3/uL (0.0-0.8); Eosinophils % 1.3 %; Hematocrit 43.1 % (37.0-47.0); Hemoglobin 13.4 g/dL (11.5-15.3); Lymphocytes # 2.1 10^3/uL (0.8-4.8); Mean Corpuscular HGB Conc 31.1 g/dL (30.0-36.0); Mean Corpuscular Hemoglobin 25.6 pg (28.0-34.0); Mean Corpuscular Volume 82.4 fL (81-99); Mean Platelet Volume 10.4 fL (7.4-10.4); Monocytes # 0.8 10^3/uL (0.2-0.9); Monocytes % 10.8 %; Neutrophils # 4.6 10^3/uL (1.8-7.7); Neutrophils % 60.2 %; Nucleated Red Blood Cells % 0 %; Platelet Count 303 10^3/cmm (130-400); Red Blood Count 5.23 10^6/uL (4.1-5.3); Red Cell Distribution Width 15.9 % (12.1-15.1); White Blood Count 7.6 10^3/uL (4.0-10.0)
[2020-02-12 08:57] LABS: Alanine Aminotransferase 12 U/L (0-33); Albumin Level 4.2 g/dL (3.5-5.2); Alkaline Phosphatase 69 IU/L (35-105); Anion Gap 13.1 (5-19); Aspartate Amino Transferase 17 U/L (0-32); Blood Urea Nitrogen 10 mg/dL (6-20); Calcium 8.7 mg/dL (8.5-10.5); Carbon Dioxide 26 mmol/L (22-29); Chloride 105 mmol/L (98-107); Globulin 3.4 g/dL (1.3-4.6); Glomerular Filtration Rate 110.7 mL/min (90-130); Glucose 84 mg/dL (65-115); HCG, Serum Qual Negative (Negative); Osmolality Calculated 285 mOsm/kg (285-295); Potassium 4.1 mmol/L (3.5-5.1); Salicylate 0.6 mg/dL (3-10); Sodium 140 mmol/L (136-145); Total Bilirubin 0.2 mg/dL (0.15-1.2); Total Protein 7.6 g/dL (6.6-8.7)
[2020-02-12 09:07] LABS: Acetaminophen < 5.0 ug/mL (10-30); Alcohol Level < 10 mg/dL (0-10)
--- NOTE | 2020-02-12 10:12 | PC.NURSE ---
PT HAS BEEN RESTING SINCE SHE HAS BEEN HERE. PT WAS OFFERED FOOD AND DRINK AND REFUSED. SITTER REMAINS AT BEDSIDE
--- NOTE | 2020-02-12 10:37 | PC.NURSE ---
DR. LEDEZMA IN ROOM TO CONSULT/EVALUATE PATIENT
[2020-02-12 11:30] VITALS: BP 135/85; PULSE 92; RESP 15; O2SAT 95
== END 2020-02-12 11:30 | disposition home or self-care (01) ==
PROVIDERS: Emergency Provider Physician Assistant; PCP Internal Medicine
DX: R45.851 Suicidal ideations (principal); F17.210 Nicotine dependence, cigarettes, uncomplicated; Z79.899 Other long term (current) drug therapy
CPT/HCPCS: 12345; 36415; 80053; 80306; 80307; 84703; 85025; 99284; 99285; A9270

== ENCOUNTER 2020-02-26 21:10 | Emergency (ER) | payer MEDICARE, MEDICAID, SELFPAY ==
[2020-02-26 21:19] VITALS: BP 109/75; PULSE 95; RESP 16; TEMP 36.9; O2SAT 95; BMI 28.1
--- NOTE | 2020-02-26 21:35 | XRR_ITS ---
PROCEDURE INFORMATION: Exam: XR Chest, 2 Views Exam date and time: 02/26/2020 9:42 PM Age: 39 years old Clinical indication: Chest pain; Additional info: SOB TECHNIQUE: Imaging protocol: XR of the chest Views: 2 views. COMPARISON: No relevant prior studies available. FINDINGS: Lungs: The lungs are clear bilaterally. Pulmonary vasculature within normal limits. Pleural space: No visible pneumothorax or pleural effusion. Heart/Mediastinum: Cardiomediastinal silhouette contour within normal limits. Bones/joints: No emergent findings identified. XR/XR chest 2V* [id number] IMPRESSION: 1. No radiographic findings of acute cardiopulmonary disease.
--- NOTE | 2020-02-26 23:01 | ED_ITS ---
HPI - SOB/Dyspnea General: Chief Complaint: Shortness of Breath/Dyspnea Stated Complaint: SOB X3 WEEKS Time Seen by Provider: 02/26/20 22:56 Source: patient Mode of arrival: ambulatory Limitations: no limitations History of Present Illness: HPI Narrative: 39-year-old female who has had slight shortness of breath over the last day and has a history of COPD. She states that it comes and goes. She denies any cough or fever. She denies any chest pain. She denies any worsening improving factors. MD elicited complaint: shortness of breath and asthma attack Pertinent past history: asthma Onset (ago): hour(s) Severity: mild Exacerbating factors: nothing Relieving factors: nothing Associated symptoms: Deny abdominal pain, chest pain, fever(s), nausea or vomiting Review of Systems Const: Denies: fever(s), chills, body aches or change in appetite Eyes: Denies: blurry vision or eye discomfort ENMT: Denies: throat pain or dental pain Card: Denies: chest pain Resp: Reports: dyspnea and wheezing GI: Denies: abdominal pain, nausea, vomiting or diarrhea : Denies: dysuria Musc: Denies: neck pain or back pain Skin/Breast: Denies: rash Neuro: Denies: headache(s) Psych: Denies: depression Riki/Lymph: Denies: easy bruising All/Imm: Denies: urticaria PFSH ED PFSH: Medical History (Updated 02/26/20 @ 23:04 by Barbara Colon MD) Substance abuse Substance abuse Social History Smoking and tobacco status: current every day smoker cigarettes Lives independently: No Household members: family Marital status: Single Highest education level completed: Don't Know service: No Current occupational status: disabled Current gender identity: Female Female Reproductive History: Date of last menstrual period: 02/05/20 Physical Exam Resp: COMMON NORMALS: normal respiratory effort AUSCULTATION: wheezes Course Vital Signs: Vital signs: Vital Signs Temperature 98.5 F 02/26/20 21:19 Pulse Rate 95 02/26/20 21:19 Respiratory Rate 16 02/26/20 21:19 Blood Pressure 109/75 02/26/20 21:19 Pulse Oximetry 95 02/26/20 21:19 MDM - SOB/Dyspnea MDM Narrative: Medical decision making narrative: Patient presents here with shortness of breath likely from asthma exacerbation. It is mild in nature and patient given Decadron and breathing treatment. Patient is stable for discharge and is return if worsening. Imaging Data^: CXR: Attestation: I personally reviewed and interpreted this imaging study as follows: My impression: no acute abnormality Discharge Plan Discharge Patient Disposition: Home, Self-Care Clinical Impression: Asthma with exacerbation Qualifiers: Asthma severity: mild Asthma persistence: unspecified Qualified Code(s): J45.901 - Unspecified asthma with (acute) exacerbation Condition: Stable Prescriptions: No Action risperidone 2 mg Tablet 4 mg PO DAILY Qty: 30 RF: 4 olanzapine 5 mg Tablet,Disintegrating 5 mg PO DAILY PRN (Reason: voices) Qty: 30 RF: 4 divalproex [Depakote ER] 250 mg tablet extended release 24 hr 250 mg PO DAILY Qty: 30 RF: 4 trazodone 50 mg Tablet 50 mg PO BEDTIME RF: 0 acyclovir 200 mg Capsule 200 mg PO BID PRN (Reason: outbreaks) RF: 0 fluoxetine 20 mg capsule 40 mg PO DAILY RF: 0 Invega 6 mg tablet extended release 24hr 6 mg PO DAILY Qty: 30 RF: 0 Discharge Orders: Discharge Order (Routine); Ordered 02/26/20 Ordered By: Barbara Colon Referrals: Kody Mccarty DO [Primary Care Provider] - 4-7 days Discharge Diet: Advance as tolerated Discharge Activity: Resume usual activity Patient Instructions: Asthma (ED) Coding Level of Care Code ED Rn Orthopaedics for Angela Fwd Exam Problem Focused
[2020-02-26 23:52] VITALS: PULSE 72; RESP 18; O2SAT 98
[2020-02-26] MEDS: ipratropium-albuterol 3 mL Neb INHALATION (23:52)
[2020-02-26 23:54] VITALS: PULSE 75
[2020-02-27] MEDS: dexamethasone 10 mg/mL INJ IM (00:44)
[2020-02-27 00:47] VITALS: BP 115/75; PULSE 98; RESP 16; O2SAT 97
== END 2020-02-27 00:48 | disposition home or self-care (01) ==
LOC: ER 23:56
PROVIDERS: Emergency Provider Emergency Medicine; PCP Internal Medicine
DX: J45.901 Unspecified asthma with (acute) exacerbation (principal); F17.210 Nicotine dependence, cigarettes, uncomplicated
CPT/HCPCS: 71046; 94640; 96372; 99282; 99283; J1100

== ENCOUNTER 2020-02-27 18:04 | Emergency (ER) | payer MEDICARE, MEDICAID, SELFPAY ==
[2020-02-27 18:05] VITALS: BP 136/96; PULSE 94; RESP 17; TEMP 36.8; O2SAT 93; BMI 30.2
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
[2020-02-27 18:53] LABS: Basophils % 0.1 %; Hematocrit 39.1 % (37.0-47.0); Hemoglobin 12.5 g/dL (11.5-15.3); Lymphocytes # 2.1 10^3/uL (0.8-4.8); Mean Corpuscular Hemoglobin 26.1 pg (28.0-34.0); Mean Corpuscular Volume 81.6 fL (81-99); Mean Platelet Volume 10.4 fL (7.4-10.4); Monocytes # 1.5 10^3/uL (0.2-0.9); Monocytes % 10.6 %; Neutrophils # 10.3 10^3/uL (1.8-7.7); Neutrophils % 73.9 %; Nucleated Red Blood Cells % 0 %; Platelet Count 243 10^3/cmm (130-400); Red Blood Count 4.79 10^6/uL (4.1-5.3); Red Cell Distribution Width 15.4 % (12.1-15.1); White Blood Count 13.9 10^3/uL (4.0-10.0)
[2020-02-27 18:54] LABS: Add Urine Microscopic? NO
[2020-02-27 19:03] LABS: Bilirubin Urine Neg (NEGATIVE); Blood Urine Neg (Negative); Glucose Urine UA Norm (Normal); HCG Qualitative Urine. Negative (Negative); Ketones Urine Negative (Negative); Leukocyte Esterase Urine Negative (Negative); Nitrate Urine Negative (Negative); Protein Urine Neg (Negative); Specific Gravity, Urine 1.005 (1.005-1.030); Urine Appearance Clear (CLEAR); Urine Color Yellow (Yellow); Urobilinogen Urine Norm (Negative); pH Urine 7 (5-7)
[2020-02-27 19:15] LABS: Alanine Aminotransferase 15 U/L (0-33); Albumin Level 4.1 g/dL (3.5-5.2); Alkaline Phosphatase 69 IU/L (35-105); Anion Gap 14.7 (5-19); Aspartate Amino Transferase 18 U/L (0-32); Blood Urea Nitrogen 6 mg/dL (6-20); Calcium 9.2 mg/dL (8.5-10.5); Carbon Dioxide 26 mmol/L (22-29); Chloride 101 mmol/L (98-107); Globulin 2.9 g/dL (1.3-4.6); Glomerular Filtration Rate 136.6 mL/min (90-130); Glucose 103 mg/dL (65-115); Osmolality Calculated 282 mOsm/kg (285-295); Potassium 3.7 mmol/L (3.5-5.1); Sodium 138 mmol/L (136-145); Total Bilirubin 0.2 mg/dL (0.15-1.2); Valproic Acid Level 14.9 mcg/mL (50-100)
[2020-02-27 19:22] LABS: Acetaminophen < 5.0 ug/mL (10-30); Alcohol Level < 10 mg/dL (0-10); Salicylate < 0.3 mg/dL (3-10)
[2020-02-27 19:50] VITALS: BP 115/67; PULSE 86; RESP 18; O2SAT 97
[2020-02-27 20:10] LABS: Amphetamines Screen Urine Negative (Negative); Barbiturates Screen Urine Negative (Negative); Benzodiazepines Screen Urine Negative (Negative); Cocaine Screen Urine Negative (Negative); Opiate Screen Urine Negative (Negative); PCP Screen Urine Negative (Negative); THC Screen Urine Negative (Negative)
[2020-02-27 21:46] VITALS: BP 125/79; PULSE 102; RESP 19; TEMP 36.7; O2SAT 95
== END 2020-02-27 21:48 | disposition home or self-care (01) ==
PROVIDERS: Emergency Medicine; Emergency Provider Nurse Practitioner Family; PCP Internal Medicine
DX: F25.9 Schizoaffective disorder, unspecified (principal); F17.210 Nicotine dependence, cigarettes, uncomplicated; Z79.899 Other long term (current) drug therapy
CPT/HCPCS: 12345; 80053; 80164; 80306; 80307; 81003; 81025; 85025; 99284